=== PATIENT | female | born 1940 | race Caucasian/White ===

== ENCOUNTER 2016-05-31 12:18 | Emergency (ER) | payer MEDICARE, OTHER ==
[2016-01-26 14:28] VITALS: Ht 167.6 cm; Wt 59.0 kg
[~2016-05-31] VITALS: Ht 167.6 cm; Wt 59.0 kg
[~2016-05-31 12:18] MED LIST: AMBIEN; AMIT50TA3 PO; AMLO5TAB4 PO; BENA5TAB2 PO; CHOL2000 PO; CLON0.5T4 PO; CYCL-10 PO; DICY10CA59 PO; FURO80TA3 PO; HYDR10SY7 PO; LEVO100T PO; LEVO125T8 PO; LEVO88TA5 PO; LOT5 PO; NAPR250T PO; NEU100 PO; NEU300 PO; NORVASC; OXYC-133 PO; PANT20TA2 PO; RANI-362 PO; SOM350 PO; SOMA; WARF1TAB46; ZOLP10TA2 PO; ZOLP5TAB2 PO; neurontin
[2016-05-31 12:25] VITALS: BP 162/89; PULSE 76; RESP 17; TEMP 98.2; O2SAT 99
--- NOTE | 2016-05-31 12:25 | NUR ---
Placed in room 5 . Placed on drum drier operator, blood pressure machine and pulse oximeter. To gown for exam. Side rails up.
--- NOTE | 2016-05-31 12:25 | NUR ---
BIB BLS ambulance,c/o general weakness ,not eating for five days.pt said she is afraid to go home. pt is A&O X2,no resp distress,confused.no focal neuro deficit noted.equal healthcare financial analyst and pushes, no arms and legs drifts,speech is clear.skin is dry warm intact.
--- NOTE | 2016-05-31 13:34 | NUR ---
ER at bedside examining patient.
--- NOTE | 2016-05-31 13:48 | NUR ---
# 20 gauge angiocath placed to . Use of asceptic technique. Opsite placed over site. Blood return noted. Blood for lab drawn from site. Flushed with 10 cc of normal saline. No evidence of infiltration noted. Patient tolerated well.
--- NOTE | 2016-05-31 13:57 | NUR ---
nursing home social worker at bedside talking with the patient.
[2016-05-31 14:01] LABS: BASOPHILS # (AUTO) 0.1 K/uL (0.0-0.2); BASOPHILS % (AUTO) 0.9 % (0.0-2.0); EOSINOPHILS # (AUTO) 0.3 K/uL (0.0-0.4); EOSINOPHILS % (AUTO) 4.6 % (0.0-4.0); HEMOGLOBIN 10.6 g/dL (12.0-16.0); LYMPHOCYTES # (AUTO) 1.7 K/uL (1.0-5.5); LYMPHOCYTES % (AUTO) 29.7 % (20.5-51.5); MEAN CORPUSCULAR HEMOGLOBIN 27 pg (27-31); MEAN CORPUSCULAR HGB CONC 33 % (32-36); MEAN CORPUSCULAR VOLUME 83 fL (79.0-98.0); MONOCYTES # (AUTO) 0.4 K/uL (0.0-1.0); MONOCYTES % (AUTO) 6.8 % (1.7-9.3); NEUTROPHILS # (AUTO) 3.3 K/uL (1.8-7.7); PLATELET COUNT (AUTO) 297 K/uL (130-430); RED BLOOD CELL COUNT(AUTO) 3.86 MIL/uL (4.2-6.2); RED CELL DISTRIBUTION WIDTH 13.7 % (9.0-15.0); WHITE BLOOD COUNT (AUTO) 5.8 K/uL (4.8-10.8)
[2016-05-31 14:05] LABS: ANION GAP 8 (5-15); CALCIUM 8.7 mg/dL (8.4-11.0); CHLORIDE 102 mmol/L (98-107); CREATININE 1.32 mg/dL (0.55-1.30); GLUCOSE 88 mg/dL (70-99); POTASSIUM 3.4 mmol/L (3.5-5.1); SODIUM SERUM 140 mmol/L (136-145); UREA NITROGEN, BLOOD 25 mg/dL (8-21)
[2016-05-31 14:11] LABS: ALANINE AMINOTRANSFERASE 30 U/L (12-78); ALBUMIN 3.8 g/dL (3.4-4.8); ASPARTATE AMINOTRANSFERASE 26 U/L (10-37); LIPASE 140 U/L (73-393); TOTAL BILIRUBIN 0.3 mg/dL (0.0-1.0); TOTAL PROTEIN, SERUM 7.7 g/dL (6.4-8.3)
--- NOTE | 2016-05-31 14:26 | NUR ---
EKG completed,read by Dr Massey
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
--- NOTE | 2016-05-31 15:15 | NUR ---
Endorsed pt from CORTNEY Ross
--- NOTE | 2016-05-31 15:57 | NUR ---
Dr. Gonzalez, pt's ENT, at bedside examining patient
[2016-05-31 16:04] LABS: BILIRUBIN,URINE NEGATIVE (NEGATIVE); BLOOD, URINE NEGATIVE (NEGATIVE); CLARITY/URINE CLEAR (CLEAR); COLOR,URINE YELLOW (YELLOW); GLUCOSE,URINE NEGATIVE (NEGATIVE); KETONES,URINE NEGATIVE (NEGATIVE); LEUKOCYTE ESTERASE ,URINE NEGATIVE (NEGATIVE); NITRITE, URINE NEGATIVE (NEGATIVE); PROTEIN URINE NEGATIVE (NEGATIVE); UROBILINOGEN,URINE 0.2 (0.2-1.0)
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
--- NOTE | 2016-05-31 18:30 | NUR ---
PER PT SHE STATED THAT WE CONTACT HER SON JIMMIE AT [phone] SHE FEELS SAFE WITH HIM. CALLED HIS SON AND HE IS ON THE WAY WILL BE HERE IN 5 MINUTES
--- NOTE | 2016-05-31 18:48 | NUR ---
Patient is A&O x 3 speaking in full sentences ambulated and given written and verbal discharge instructions and verbalizes understanding. ER MD discussed with patient the results and treatment provided. Given copies of tests performed in ER. Patient in stable condition. ID arm band removed. IV catheter removed intact and dressing applied, no active bleeding. Rx of NONE given. Patient educated on pain management and to follow up with PMD. Pain Scale 0/10 Opportunity for questions provided and answered. assisted pt to sons car via wheelchair
[2016-05-31 18:51] VITALS: BP 136/69; PULSE 87; RESP 15; TEMP 98.2; O2SAT 98
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
== END 2016-05-31 18:50 | disposition home or self-care (01) ==
LOC: SED 12:18
DX: S09.90XA Unspecified injury of head, initial encounter (principal); K80.50 Calculus of bile duct without cholangitis or cholecystitis without obstruction; K59.00 Constipation, unspecified; R10.13 Epigastric pain; E03.9 Hypothyroidism, unspecified; Z88.5 Allergy status to narcotic agent; Z88.8 Allergy status to other drugs, medicaments and biological substances
CPT/HCPCS: 36415; 70450-TC; 80053; 81003; 83690-TC; 84484; 85025; 93005; 99285

== ENCOUNTER 2016-11-24 01:02 | Emergency (ER) | payer MEDICARE ==
[~2016-11-24] VITALS: Ht 175.3 cm; Wt 57.2 kg
[~2016-11-24 01:02] MED LIST changes: -AMBIEN; -AMIT50TA3 PO; -AMLO5TAB4 PO; -BENA5TAB2 PO; -CHOL2000 PO; -LEVO100T PO; -LEVO125T8 PO; -LEVO88TA5 PO; -LOT5 PO; -NAPR250T PO; -NEU100 PO; -NEU300 PO; -NORVASC; -SOM350 PO; -SOMA; -WARF1TAB46; -ZOLP10TA2 PO; -neurontin
[2016-11-24 01:05] VITALS: BP_SYST 135
[2016-11-24] MEDS: OXYCODONE/ACETAMINOPHEN 5-325 TABLET PO ONE (01:40)
[2016-11-24] MEDS: amLODIPine BESYLATE 5 MG TABLET PO ONE (02:05)
[2016-11-24 03:40] VITALS: BP_SYST 147
== END 2016-11-24 03:40 | disposition home or self-care (01) ==
LOC: SED 01:02
DX: G62.9 Polyneuropathy, unspecified (principal); G47.00 Insomnia, unspecified; E03.9 Hypothyroidism, unspecified; Z88.6 Allergy status to analgesic agent; Z88.5 Allergy status to narcotic agent; Z88.8 Allergy status to other drugs, medicaments and biological substances
CPT/HCPCS: 99283

== ENCOUNTER 2016-12-29 15:25 | Emergency (ER) | payer MEDICARE ==
[~2016-12-29] VITALS: Ht 180.3 cm; Wt 54.4 kg
--- NOTE | 2016-12-29 15:39 | NUR ---
Ambulatory to bed 3
--- NOTE | 2016-12-29 15:44 | NUR ---
Placed on cardiac nurse, blood pressure machine and pulse oximeter. To gown for exam. Side rails up.
[2016-12-29 15:46] VITALS: BP_SYST 167
--- NOTE | 2016-12-29 16:07 | NUR ---
ER at bedside examining patient.
--- NOTE | 2016-12-29 16:08 | NUR ---
# 20 gauge angiocath placed to lac . Use of asceptic technique. Opsite placed over site. Blood return noted. Blood for lab drawn from site. Flushed with 10 cc of normal saline. No evidence of infiltration noted. Patient tolerated well.
--- NOTE | 2016-12-29 16:16 | NUR ---
pt states" I have a cold,now cold comes to my chest,I couldn't breath, my fibromyogia flare up,my legs are hurting..." Pt is Awake alert oriented x4.denies chest pain,speak full sentences.no acute resp distress.
[2016-12-29 16:39] LABS: BASOPHILS # (AUTO) 0.1 K/uL (0.0-0.2); BASOPHILS % (AUTO) 0.9 % (0.0-2.0); EOSINOPHILS # (AUTO) 0.2 K/uL (0.0-0.4); EOSINOPHILS % (AUTO) 2.9 % (0.0-4.0); HEMATOCRIT 32.8 % (36-48); HEMOGLOBIN 11.1 g/dL (12.0-16.0); LYMPHOCYTES # (AUTO) 1.5 K/uL (1.0-5.5); LYMPHOCYTES % (AUTO) 26.3 % (20.5-51.5); MEAN CORPUSCULAR HEMOGLOBIN 29 pg (27-31); MEAN CORPUSCULAR HGB CONC 34 % (32-36); MEAN CORPUSCULAR VOLUME 85 fL (79.0-98.0); MONOCYTES # (AUTO) 0.6 K/uL (0.0-1.0); MONOCYTES % (AUTO) 10.5 % (1.7-9.3); NEUTROPHILS # (AUTO) 3.3 K/uL (1.8-7.7); NEUTROPHILS % (AUTO) 59.4 % (40.0-70.0); PLATELET COUNT (AUTO) 306 K/uL (130-430); RED BLOOD CELL COUNT(AUTO) 3.85 MIL/uL (4.2-6.2); RED CELL DISTRIBUTION WIDTH 17.8 % (9.0-15.0); WHITE BLOOD COUNT (AUTO) 5.7 K/uL (4.8-10.8)
[2016-12-29 16:43] LABS: ANION GAP 10 (5-15); CHLORIDE 103 mmol/L (98-107); CREATININE 1.01 mg/dL (0.55-1.30); GLUCOSE 80 mg/dL (70-99); SODIUM SERUM 137 mmol/L (136-145); UREA NITROGEN, BLOOD 22 mg/dL (8-21)
[2016-12-29 16:44] LABS: INR 0.9 (0.8-1.2); PROTHROMBIN TIME 9.8 SECS (9.5-12.5)
[2016-12-29 16:48] LABS: ALANINE AMINOTRANSFERASE 22 U/L (12-78); ALBUMIN 3.3 g/dL (3.4-4.8); ASPARTATE AMINOTRANSFERASE 22 U/L (10-37); TOTAL BILIRUBIN 0.3 mg/dL (0.0-1.0)
--- NOTE | 2016-12-29 18:02 | NUR ---
resting in bed,no acute distress.
[2016-12-29 18:31] LABS: BILIRUBIN,URINE NEGATIVE (NEGATIVE); BLOOD, URINE 2+ (NEGATIVE); CLARITY/URINE CLEAR (CLEAR); COLOR,URINE YELLOW (YELLOW); GLUCOSE,URINE NEGATIVE (NEGATIVE); KETONES,URINE NEGATIVE (NEGATIVE); LEUKOCYTE ESTERASE ,URINE NEGATIVE (NEGATIVE); NITRITE, URINE NEGATIVE (NEGATIVE); PH,URINE 6.5 (5.0-8.0); PROTEIN URINE NEGATIVE (NEGATIVE); UROBILINOGEN,URINE 0.2 (0.2-1.0)
[2016-12-29 18:34] LABS: BACTERIA,URINE FEW /HPF (None Seen); MUCUS,URINE None Seen /LPF (None Seen); RBC,URINE 0-3 /HPF (0-3); WBC,URINE 0-3 /HPF (0-3)
[2016-12-29 19:18] VITALS: BP_SYST 152
--- NOTE | 2016-12-29 19:20 | NUR ---
Patient does not wish to proceed with medical care recommended by Dr casarez. Patient given information related to possible complications, up to and including , which could occur as a result of leaving hospital at this time. Patient verbalizes understanding of risks involved leaving against medical advice. Patient has signed AMA form.
== END 2016-12-29 19:18 | disposition left against medical advice (07) ==
LOC: SED 15:25
DX: R07.89 Other chest pain (principal); M79.7 Fibromyalgia; E03.9 Hypothyroidism, unspecified; Z88.5 Allergy status to narcotic agent; Z88.6 Allergy status to analgesic agent; Z88.8 Allergy status to other drugs, medicaments and biological substances; Z79.899 Other long term (current) drug therapy
CPT/HCPCS: 36415; 71010; 80053; 81000-TC; 83880; 84484; 85025; 85610-TC; 93005; 99285

== ENCOUNTER 2017-01-12 18:52 | Emergency (ER) | payer MEDICARE ==
[2016-01-26 14:28] VITALS: Ht 180.3 cm; Wt 56.7 kg
[~2017-01-12] VITALS: Ht 180.3 cm; Wt 56.7 kg
[~2017-01-12 18:52] MED LIST changes: +AMBIEN; +AMIT50TA3 PO; +AMLO5TAB4 PO; +BENA5TAB2 PO; +CHOL2000 PO; +LEVO100T PO; +LEVO125T8 PO; +LEVO88TA5 PO; +LOT5 PO; +NAPR250T PO; +NEU100 PO; +NEU300 PO; +NORVASC; +SOM350 PO; +SOMA; +WARF1TAB46; +ZOLP10TA2 PO; +neurontin
[2017-01-12 19:01] VITALS: BP 169/99; PULSE 95; RESP 19; TEMP 98.9; O2SAT 96
[2017-01-12] MEDS ORDERED: ACETAMINOPHEN 500 MG TABLET PO ONE (20:30)
[2017-01-12 21:39] VITALS: BP 154/88; PULSE 87; RESP 19; TEMP 98.8; O2SAT 98
== END 2017-01-12 21:39 | disposition home or self-care (01) ==
LOC: SED 18:52
DX: S00.03XA Contusion of scalp, initial encounter (principal); S00.83XA Contusion of other part of head, initial encounter; E03.9 Hypothyroidism, unspecified; M79.7 Fibromyalgia; W18.30XA Fall on same level, unspecified, initial encounter; Y93.89 Activity, other specified; Y92.098 Other place in other non-institutional residence as the place of occurrence of the external cause; Y99.8 Other external cause status
CPT/HCPCS: 70450-TC; 70486-TC; 72125-TC; 99284

== ENCOUNTER 2017-05-03 19:30 | Emergency (ER) | payer MEDICARE ==
[~2017-05-03] VITALS: Ht 175.3 cm; Wt 68.0 kg
[~2017-05-03 19:30] MED LIST changes: -AMBIEN; -AMIT50TA3 PO; -AMLO5TAB4 PO; -BENA5TAB2 PO; -CHOL2000 PO; -LEVO100T PO; -LEVO125T8 PO; -LEVO88TA5 PO; -LOT5 PO; -NAPR250T PO; -NEU100 PO; -NEU300 PO; -NORVASC; -SOM350 PO; -SOMA; -WARF1TAB46; -ZOLP10TA2 PO; -neurontin
[2017-05-03 19:40] VITALS: BP_SYST 167
--- NOTE | 2017-05-03 19:40 | NUR ---
Placed in room 5 . Placed on youth nutritional monitor, blood pressure machine and pulse oximeter. To gown for exam. Side rails up. Report given to CORTNEY Doty.
--- NOTE | 2017-05-03 19:45 | NUR ---
Patient brought to ED accompanied by daughter with complaint of altered mentation. Daughter reports ALOC x 2 days. Presents AAOx2. Hx of UTI and Subdural hematoma. Slightly febrile at 99.3. Denies CP, SOB or N/V. NO deficits to extremity. Daughter reports innapropriate speech. Will continue to monitor.
--- NOTE | 2017-05-03 20:00 | NUR ---
ED Kiya at bedside for medical evaluation.
--- NOTE | 2017-05-03 20:13 | NUR ---
Patient transported off unit for CT via gurney. Accompanied by radiology staff.
--- NOTE | 2017-05-03 20:30 | NUR ---
Patient returned to unit.
[2017-05-03 20:58] LABS: ANION GAP 4 (5-15); CALCIUM 9.9 mg/dL (8.4-11.0); CHLORIDE 108 mmol/L (98-107); CREATININE 1.33 mg/dL (0.55-1.30); GLUCOSE 107 mg/dL (70-99); POTASSIUM 3.6 mmol/L (3.5-5.1); SODIUM SERUM 143 mmol/L (136-145); UREA NITROGEN, BLOOD 22 mg/dL (8-21)
[2017-05-03 21:02] LABS: BASOPHILS % (AUTO) 0.5 % (0.0-2.0); EOSINOPHILS # (AUTO) 0.2 K/uL (0.0-0.4); EOSINOPHILS % (AUTO) 2.4 % (0.0-4.0); HEMATOCRIT 38.3 % (36-48); HEMOGLOBIN 12.8 g/dL (12.0-16.0); LYMPHOCYTES # (AUTO) 1.6 K/uL (1.0-5.5); LYMPHOCYTES % (AUTO) 23.8 % (20.5-51.5); MEAN CORPUSCULAR HEMOGLOBIN 30 pg (27-31); MEAN CORPUSCULAR HGB CONC 34 % (32-36); MEAN CORPUSCULAR VOLUME 89 fL (79.0-98.0); MONOCYTES # (AUTO) 0.6 K/uL (0.0-1.0); MONOCYTES % (AUTO) 8.6 % (1.7-9.3); NEUTROPHILS # (AUTO) 4.5 K/uL (1.8-7.7); NEUTROPHILS % (AUTO) 64.7 % (40.0-70.0); PLATELET COUNT (AUTO) 316 K/uL (130-430); RED BLOOD CELL COUNT(AUTO) 4.32 MIL/uL (4.2-6.2); RED CELL DISTRIBUTION WIDTH 12.8 % (9.0-15.0); WHITE BLOOD COUNT (AUTO) 6.9 K/uL (4.8-10.8)
[2017-05-03 21:04] LABS: ALANINE AMINOTRANSFERASE 13 U/L (12-78); ALBUMIN 3.8 g/dL (3.4-4.8); ASPARTATE AMINOTRANSFERASE 16 U/L (10-37); TOTAL BILIRUBIN 0.3 mg/dL (0.0-1.0)
[2017-05-03 21:09] LABS: PROTHROMBIN TIME 10.1 SECS (9.5-12.5)
[2017-05-03 21:23] LABS: BARBITURATE, URINE NEGATIVE (NEG <=200); BENZODIAZEPINE, URINE POSITIVE (NEG <=150); CANNABINOID, URINE NEGATIVE (NEG <=50); COCAINE, URINE NEGATIVE (NEG <=150); METHAMPHETAMINES SCREEN,URINE NEGATIVE (NEG <=500); OPIATE, URINE NEGATIVE (NEG <=100); PHENCYCLIDINE SCREEN,URINE NEGATIVE (NEG <=25); UR TRICYCLIC ANTIDEPRESSANTS POSITIVE (NEG <=300); URINE AMPHETAMINE NEGATIVE (NEG <=500); URINE METHADONE NEGATIVE (NEG <=200); URINE OXYCODONE SCREEN NEGATIVE (NEG <=100); URINE PROPOXYPHENE SCREEN NEGATIVE (NEG <=300)
--- NOTE | 2017-05-03 21:46 | NUR ---
16 FR In and Out catheter with use of sterile technique. Immediate return of 100 ml lamar urine noted. Urine sample collected and sent to lab. Pt tolerated procedure well. Patient unable to toilet self.
[2017-05-03 22:15] LABS: BILIRUBIN,URINE NEGATIVE (NEGATIVE); BLOOD, URINE 1+ (NEGATIVE); CLARITY/URINE CLEAR (CLEAR); COLOR,URINE YELLOW (YELLOW); GLUCOSE,URINE NEGATIVE (NEGATIVE); KETONES,URINE TRACE (NEGATIVE); LEUKOCYTE ESTERASE ,URINE NEGATIVE (NEGATIVE); NITRITE, URINE NEGATIVE (NEGATIVE); PROTEIN URINE 1+ (NEGATIVE); UROBILINOGEN,URINE 0.2 (0.2-1.0)
[2017-05-03 22:23] LABS: BACTERIA,URINE MODERATE /HPF (None Seen); WBC,URINE 0-3 /HPF (0-3)
--- NOTE | 2017-05-03 22:30 | NUR ---
ED MD Kiya at bedside reassessing patient.
[2017-05-03 22:50] VITALS: BP_SYST 148
--- NOTE | 2017-05-03 22:50 | NUR ---
Patient given written and verbal discharge instructions and verbalizes understanding. ER MD discussed with patient the results and treatment provided. Patient in stable condition. ID arm band removed. Rx of Cipro given. Patient educated on pain management and to follow up with PMD. Pain Scale 0/10. Opportunity for questions provided and answered.
== END 2017-05-03 22:50 | disposition home or self-care (01) ==
LOC: SED 19:30
DX: F03.90 Unspecified dementia, unspecified severity, without behavioral disturbance, psychotic disturbance, mood disturbance, and anxiety (principal); N39.0 Urinary tract infection, site not specified; E86.0 Dehydration; Z88.5 Allergy status to narcotic agent; Z88.8 Allergy status to other drugs, medicaments and biological substances; Z79.899 Other long term (current) drug therapy; Z86.2 Personal history of diseases of the blood and blood-forming organs and certain disorders involving the immune mechanism
CPT/HCPCS: 36415; 70450; 80053; 80307; 81000; 85025; 85610; 87086; 93005; 99285; G0481

== ENCOUNTER 2019-02-23 12:08 | Inpatient (IN) | payer MEDICARE, OTHER ==
[~2019-02-23] VITALS: Ht 154.3 cm; Wt 63.5 kg
[~2019-02-23 12:08] MED LIST changes: +CLON0.5T12 PO; -CLON0.5T4 PO; +HYDR10SY11 PO; -HYDR10SY7 PO
[2019-02-23] MEDS ORDERED: ALBUTEROL SULFATE 0.083% 2.5 MG/3 ML VIAL.NEB INH ONE (12:15)
[2019-02-23] MEDS ORDERED: IPRATROPIUM/ALBUTEROL SULFATE 3 ML AMPUL.NEB (DUONEB) INH ONE (12:15)
[2019-02-23] MEDS ORDERED: MAGNESIUM SULFATE 50 ML IV ONE (12:15)
[2019-02-23] MEDS ORDERED: methylPREDNISolone SOD SUCC/PF 62.5 MG/ML VIAL IVP ONE (12:15)
[2019-02-23 12:18] VITALS: BP_SYST 141
[2019-02-23 12:52] LABS: BASOPHILS % (AUTO) 0.3 % (0.0-2.0); EOSINOPHILS # (AUTO) 0.1 K/uL (0.0-0.4); EOSINOPHILS % (AUTO) 0.6 % (0.0-4.0); HEMATOCRIT 32.5 % (36-48); HEMOGLOBIN 11.3 g/dL (12.0-16.0); LYMPHOCYTES # (AUTO) 1.7 K/uL (1.0-5.5); LYMPHOCYTES % (AUTO) 11.4 % (20.5-51.5); MEAN CORPUSCULAR HEMOGLOBIN 30 pg (27-31); MEAN CORPUSCULAR HGB CONC 35 % (32-36); MEAN CORPUSCULAR VOLUME 86 fL (79.0-98.0); MONOCYTES # (AUTO) 0.6 K/uL (0.0-1.0); MONOCYTES % (AUTO) 4.1 % (1.7-9.3); NEUTROPHILS # (AUTO) 12.4 K/uL (1.8-7.7); NEUTROPHILS % (AUTO) 83.6 % (40.0-70.0); RED BLOOD CELL COUNT(AUTO) 3.76 MIL/uL (4.2-6.2); RED CELL DISTRIBUTION WIDTH 14.6 % (9.0-15.0); WHITE BLOOD COUNT (AUTO) 14.8 K/uL (4.8-10.8)
[2019-02-23 13:04] LABS: ANION GAP 10 (5-15); CALCIUM 8.6 mg/dL (8.4-11.0); CHLORIDE 104 mmol/L (98-107); CREATININE 1.57 mg/dL (0.55-1.30); GLUCOSE 114 mg/dL (70-99); POTASSIUM 4.2 mmol/L (3.5-5.1); SODIUM SERUM 140 mmol/L (136-145); UREA NITROGEN, BLOOD 52 mg/dL (8-21)
[2019-02-23 13:07] LABS: PLATELET COUNT (AUTO) 803 K/uL (130-430)
[2019-02-23 13:09] LABS: ALANINE AMINOTRANSFERASE 64 U/L (12-78); ALBUMIN 2.7 g/dL (3.4-4.8); ASPARTATE AMINOTRANSFERASE 17 U/L (10-37); TOTAL BILIRUBIN 0.3 mg/dL (0.0-1.0)
[2019-02-23] MEDS ORDERED: PRO40 PO (14:35)
[2019-02-23] MEDS ORDERED: LEVO125T8 PO (14:35)
[2019-02-23] MEDS ORDERED: TRAM-350 PO (14:35)
[2019-02-23] MEDS ORDERED: PRED20TA PO (14:35)
[2019-02-23] MEDS ORDERED: ALBU8.5H8 INH (14:35)
[2019-02-23] MEDS ORDERED: AMLO5TAB4 PO (14:35)
[2019-02-23] MEDS ORDERED: GABA-531 PO (14:35)
[2019-02-23] MEDS ORDERED: VENL37.510 PO (14:35)
[2019-02-23] MEDS ORDERED: TRAZ-250 PO (14:35)
[2019-02-23] MEDS ORDERED: NORT10CA PO (14:35)
[2019-02-23] MEDS ORDERED: MIRT15TA7 PO (14:35)
[2019-02-23] MEDS ORDERED: LEVOFLOXACIN 500 MG/D5W 100 ML IV ONE (14:45)
[2019-02-23] MEDS ORDERED: cefTRIAXone 1 GM IVPB PREMIX 50 ML IV ONE (14:45)
[2019-02-23] MEDS ORDERED: LORazepam 2 MG/ML VIAL IVP ONE (15:00)
[2019-02-23] MEDS ORDERED: ONDANSETRON HCL 4 MG/2 ML VIAL IVP PRN (15:15)
[2019-02-23] MEDS ORDERED: ALBUTEROL SULFATE 0.083% 2.5 MG/3 ML VIAL.NEB INH PRN ×2 (15:15→15:18)
[2019-02-23] MEDS ORDERED: metroNIDAZOLE 500 mg/NS 100 ML IV ONE (16:00)
[2019-02-23 16:32] VITALS: BP_SYST 113
[2019-02-23 16:41] VITALS: BP_SYST 130
[2019-02-23] MEDS ORDERED: PANTOPRAZOLE SODIUM 40 MG/VIAL (PROTONIX) IVP ONE (17:00)
[2019-02-23 20:05] VITALS: BP_SYST 135
[2019-02-23] MEDS: ACETAMINOPHEN 325 MG TABLET PO PRN ×6 (21:56→23:14)
[2019-02-24 00:29] VITALS: BP_SYST 114
[2019-02-24 06:48] LABS: BASOPHILS % (AUTO) 0.2 % (0.0-2.0); HEMATOCRIT 29.7 % (36-48); HEMOGLOBIN 10.2 g/dL (12.0-16.0); LYMPHOCYTES # (AUTO) 1.4 K/uL (1.0-5.5); LYMPHOCYTES % (AUTO) 9.2 % (20.5-51.5); MEAN CORPUSCULAR HEMOGLOBIN 30 pg (27-31); MEAN CORPUSCULAR HGB CONC 34 % (32-36); MEAN CORPUSCULAR VOLUME 86 fL (79.0-98.0); MONOCYTES # (AUTO) 0.6 K/uL (0.0-1.0); MONOCYTES % (AUTO) 4.1 % (1.7-9.3); NEUTROPHILS # (AUTO) 13.3 K/uL (1.8-7.7); NEUTROPHILS % (AUTO) 86.5 % (40.0-70.0); PLATELET COUNT (AUTO) 746 K/uL (130-430); RED BLOOD CELL COUNT(AUTO) 3.44 MIL/uL (4.2-6.2); WHITE BLOOD COUNT (AUTO) 15.4 K/uL (4.8-10.8)
[2019-02-24 06:55] VITALS: BP_SYST 119
[2019-02-24 07:11] LABS: ALANINE AMINOTRANSFERASE 49 U/L (12-78); ALBUMIN 2.6 g/dL (3.4-4.8); ANION GAP 8 (5-15); ASPARTATE AMINOTRANSFERASE 14 U/L (10-37); CALCIUM 8.7 mg/dL (8.4-11.0); CHLORIDE 104 mmol/L (98-107); CREATININE 1.44 mg/dL (0.55-1.30); GLUCOSE 116 mg/dL (70-99); POTASSIUM 4.3 mmol/L (3.5-5.1); SODIUM SERUM 138 mmol/L (136-145); TOTAL BILIRUBIN 0.2 mg/dL (0.0-1.0); UREA NITROGEN, BLOOD 49 mg/dL (8-21)
[2019-02-24] MEDS: metroNIDAZOLE 500 mg/NS 100 ML IV SCH ×4 (08:46→23:50)
[2019-02-24] MEDS ORDERED: PANTOPRAZOLE SODIUM 40 MG/VIAL (PROTONIX) IVP SCH (09:00)
[2019-02-24 09:03] VITALS: BP_SYST 141
[2019-02-24] MEDS ORDERED: GABAPENTIN 300 MG CAPSULE PO PRN (11:15)
[2019-02-24] MEDS ORDERED: amLODIPine BESYLATE 5 MG TABLET PO ONE (11:30)
[2019-02-24] MEDS ORDERED: Effexor 37.5 MG TAB PO ONE (11:30)
[2019-02-24] MEDS ORDERED: NORTRIPTYLINE HCL 10 MG CAPSULE PO ONE (11:30)
[2019-02-24] MEDS ORDERED: LEVOTHYROXINE SODIUM 0.125 MG TABLET PO ONE (11:30)
[2019-02-24 12:38] VITALS: BP_SYST 126
[2019-02-24] MEDS: LevALBUTEROL HCL 1.25 MG/0.5 ML *CONC.* VIAL.NEB (XOPENEX CONC.) INH SCH ×2 (13:00→19:13)
[2019-02-24] MEDS: IPRATROPIUM BROM 0.5 MG/2.5 ML VIAL.NEB (ATROVENT) INH SCH ×2 (13:00→19:13)
[2019-02-24] MEDS: traZODone HCL 50 MG TABLET (DESYREL) PO SCH ×2 (14:51→22:16)
[2019-02-24] MEDS ORDERED: LEVOFLOXACIN 250 MG/D5W 50 ML IV SCH (15:00)
[2019-02-24 16:19] VITALS: BP_SYST 129
[2019-02-24] MEDS: NORTRIPTYLINE HCL 10 MG CAPSULE PO SCH (22:16)
[2019-02-25] MEDS: IPRATROPIUM BROM 0.5 MG/2.5 ML VIAL.NEB (ATROVENT) INH SCH ×3 (01:00→13:00)
[2019-02-25] MEDS: LevALBUTEROL HCL 1.25 MG/0.5 ML *CONC.* VIAL.NEB (XOPENEX CONC.) INH SCH ×3 (01:00→13:00)
[2019-02-25 02:36] VITALS: BP_SYST 137
[2019-02-25 06:37] LABS: BASOPHILS # (AUTO) 0.1 K/uL (0.0-0.2); BASOPHILS % (AUTO) 0.5 % (0.0-2.0); EOSINOPHILS # (AUTO) 0.1 K/uL (0.0-0.4); EOSINOPHILS % (AUTO) 0.9 % (0.0-4.0); HEMATOCRIT 28.3 % (36-48); HEMOGLOBIN 9.9 g/dL (12.0-16.0); LYMPHOCYTES # (AUTO) 2.7 K/uL (1.0-5.5); LYMPHOCYTES % (AUTO) 25.1 % (20.5-51.5); MEAN CORPUSCULAR HEMOGLOBIN 31 pg (27-31); MEAN CORPUSCULAR HGB CONC 35 % (32-36); MEAN CORPUSCULAR VOLUME 88 fL (79.0-98.0); MONOCYTES # (AUTO) 0.7 K/uL (0.0-1.0); MONOCYTES % (AUTO) 6.5 % (1.7-9.3); NEUTROPHILS # (AUTO) 7.3 K/uL (1.8-7.7); RED BLOOD CELL COUNT(AUTO) 3.21 MIL/uL (4.2-6.2); RED CELL DISTRIBUTION WIDTH 15.3 % (9.0-15.0)
[2019-02-25 06:51] LABS: ALANINE AMINOTRANSFERASE 46 U/L (12-78); ALBUMIN 2.5 g/dL (3.4-4.8); ANION GAP 9 (5-15); ASPARTATE AMINOTRANSFERASE 30 U/L (10-37); CALCIUM 8.4 mg/dL (8.4-11.0); CHLORIDE 105 mmol/L (98-107); CREATININE 1.39 mg/dL (0.55-1.30); GLUCOSE 94 mg/dL (70-99); POTASSIUM 4.2 mmol/L (3.5-5.1); SODIUM SERUM 138 mmol/L (136-145); TOTAL BILIRUBIN 0.3 mg/dL (0.0-1.0); UREA NITROGEN, BLOOD 40 mg/dL (8-21)
[2019-02-25 06:57] LABS: WHITE BLOOD COUNT (AUTO) 10.9 K/uL (4.8-10.8)
[2019-02-25] MEDS ORDERED: LEVOTHYROXINE SODIUM 0.125 MG TABLET PO SCH (07:00)
[2019-02-25 08:00] VITALS: BP_SYST 116; BP_SYST 134
[2019-02-25 08:34] LABS: PLATELET COUNT (AUTO) 647 K/uL (130-430)
[2019-02-25] MEDS: traZODone HCL 50 MG TABLET (DESYREL) PO SCH (09:00)
[2019-02-25] MEDS ORDERED: Effexor 37.5 MG TAB PO SCH (09:00)
[2019-02-25] MEDS ORDERED: amLODIPine BESYLATE 5 MG TABLET PO SCH (09:00)
[2019-02-25] MEDS ORDERED: PANTOPRAZOLE SODIUM 40 MG TAB PO SCH (09:00)
[2019-02-25] MEDS: metroNIDAZOLE 500 mg/NS 100 ML IV SCH (09:01)
[2019-02-25] MEDS ORDERED: LEVO500T89 PO (10:20)
[2019-02-25 11:14] VITALS: BP_SYST 127; BP_SYST 130
[2019-02-25 12:00] VITALS: BP_SYST 127
[2019-02-25] MEDS: NORTRIPTYLINE HCL 10 MG CAPSULE PO SCH (12:10)
[2019-02-25 14:16] VITALS: BP_SYST 130
== END 2019-02-25 15:00 | disposition home or self-care (01) | DRG 194 ==
LOC: SED 12:08 → STU 15:15
PROVIDERS: ADMIT Internal Medicine; ATTEND Internal Medicine
DX: J18.9 Pneumonia, unspecified organism (principal); L97.919 Non-pressure chronic ulcer of unspecified part of right lower leg with unspecified severity; J44.0 Chronic obstructive pulmonary disease with (acute) lower respiratory infection; L97.929 Non-pressure chronic ulcer of unspecified part of left lower leg with unspecified severity; E44.0 Moderate protein-calorie malnutrition; N18.3 Chronic kidney disease, stage 3 (moderate); D64.9 Anemia, unspecified; M79.7 Fibromyalgia; E03.9 Hypothyroidism, unspecified; Z96.652 Presence of left artificial knee joint; F17.210 Nicotine dependence, cigarettes, uncomplicated; E66.01 Morbid (severe) obesity due to excess calories; R74.0 Nonspecific elevation of levels of transaminase and lactic acid dehydrogenase [LDH]; R73.9 Hyperglycemia, unspecified; I25.10 Atherosclerotic heart disease of native coronary artery without angina pectoris; R26.9 Unspecified abnormalities of gait and mobility; I87.8 Other specified disorders of veins; I83.009 Varicose veins of unspecified lower extremity with ulcer of unspecified site; F10.10 Alcohol abuse, uncomplicated; I48.91 Unspecified atrial fibrillation; E87.5 Hyperkalemia; D47.3 Essential (hemorrhagic) thrombocythemia; Z88.5 Allergy status to narcotic agent; Z79.899 Other long term (current) drug therapy; Z91.19 Patient's noncompliance with other medical treatment and regimen; Z56.0 Unemployment, unspecified; Z68.26 Body mass index [BMI] 26.0-26.9, adult; I12.9 Hypertensive chronic kidney disease with stage 1 through stage 4 chronic kidney disease, or unspecified chronic kidney disease
CPT/HCPCS: 36415; 36600; 70450-TC; 71045; 71250-TC; 80053; 82803-TC; 83605; 85025; 87040-TC; 93005; 94640; 96365; 96367; 96368; 96375; 99285; C9113; G0378; J0696; J1956; J2060; J2930; J3475; J3490; J7612

== ENCOUNTER 2020-04-29 16:08 | Emergency (ER) | payer OTHER ==
[~2020-04-29] VITALS: Ht 170.2 cm; Wt 63.5 kg
[~2020-04-29 16:08] MED LIST changes: +ALBU8.5H8 INH; +AMLO5TAB4 PO; -CLON0.5T12 PO; -DICY10CA59 PO; -FURO80TA3 PO; +GABA-531 PO; -HYDR10SY11 PO; +LEVO125T8 PO; +LEVO500T89 PO; +MIRT15TA7 PO; +NORT10CA PO; -OXYC-133 PO; -PANT20TA2 PO; +PRED20TA PO; +PRO40 PO; -RANI-362 PO; +TRAM-350 PO; +TRAZ-250 PO; +VENL37.510 PO; -ZOLP5TAB2 PO
[2020-04-29 16:10] VITALS: BP_SYST 171
--- NOTE | 2020-04-29 16:10 | NUR ---
BROUGHT INTO OUTSIDE TRIAGE TENT NAD TRIAGED. AWAITING ER BED
--- NOTE | 2020-04-29 16:40 | NUR ---
DR OLIVA OUT TO TENT FOR EVALUATION
--- NOTE | 2020-04-29 17:20 | NUR ---
AWAITING RESULTS IN TENT.
--- NOTE | 2020-04-29 18:10 | NUR ---
VELCRO SPLINT APPLIED, PT TOLERATED IT WELL.
[2020-04-29] MEDS ORDERED: NAPR-1172 PO (18:28)
[2020-04-29] MEDS ORDERED: ACETAMINOPHEN 500 MG TABLET PO ONE (18:30)
--- NOTE | 2020-04-29 18:56 | NUR ---
Patient given written and verbal discharge instructions and verbalizes understanding. ER MD discussed with patient the results and treatment provided. Patient in stable condition. ID arm band removed. Rx of NAPROXEN given. Patient educated on pain management and to follow up with PMD. Pain Scale 0/10. Opportunity for questions provided and answered. Medication side effect fact sheet provided.
== END 2020-04-29 18:56 | disposition home or self-care (01) ==
LOC: SED 16:08
DX: S52.592A Other fractures of lower end of left radius, initial encounter for closed fracture (principal); S00.03XA Contusion of scalp, initial encounter; I10 Essential (primary) hypertension; E03.9 Hypothyroidism, unspecified; J44.9 Chronic obstructive pulmonary disease, unspecified; Z79.899 Other long term (current) drug therapy; Z88.6 Allergy status to analgesic agent; W18.39XA Other fall on same level, initial encounter; Y93.89 Activity, other specified; Y92.89 Other specified places as the place of occurrence of the external cause; Y99.8 Other external cause status
CPT/HCPCS: 70450-TC; 76376; 99284

== ENCOUNTER 2020-10-04 16:26 | Emergency (ER) | payer OTHER ==
[~2020-10-04] VITALS: Ht 177.8 cm; Wt 70.3 kg
[~2020-10-04 16:26] MED LIST changes: +EFF37 PO; +NAPR-1172 PO; -VENL37.510 PO
--- NOTE | 2020-10-04 16:28 | NUR ---
Patient to ER bed 04 to gown for evaluation. Side rails up.
--- NOTE | 2020-10-04 16:30 | NUR ---
Pt walked in to ER with c/o left knee pain, reports mechanical trip and fall 2 days ago while walking up her porch. Knee pain /, pt reports hitting her head also, no KO, no BARNETT at this time. V/S stable, no acute distress noted.
[2020-10-04 16:33] VITALS: BP_SYST 150
--- NOTE | 2020-10-04 16:38 | NUR ---
ER Dr. Phelan at bedside examining patient.
--- NOTE | 2020-10-04 16:59 | NUR ---
Radiology at bedside for knee x-ray.
[2020-10-04] MEDS ORDERED: KETOROLAC TROMETHAMINE 60 MG/2 ML VIAL IM ONE (17:00)
--- NOTE | 2020-10-04 17:05 | NUR ---
Patient transported to radiology via wheelchair, accompanied by staff.
[2020-10-04] MEDS ORDERED: ACET-2634 PO (18:41)
--- NOTE | 2020-10-04 18:50 | NUR ---
Patient given written and verbal discharge instructions and verbalizes understanding. ER MD discussed with patient the results and treatment provided. Patient in stable condition. ID arm band removed. Rx of Tylenol given. Patient educated on pain management and to follow up with PMD. Pain Scale 0. Opportunity for questions provided and answered. Medication side effect fact sheet provided.
[2020-10-04 18:53] VITALS: BP_SYST 150
== END 2020-10-04 18:53 | disposition home or self-care (01) ==
LOC: SED 16:26
DX: S83.92XA Sprain of unspecified site of left knee, initial encounter (principal); S09.90XA Unspecified injury of head, initial encounter; I10 Essential (primary) hypertension; J44.9 Chronic obstructive pulmonary disease, unspecified; Z88.5 Allergy status to narcotic agent; Z88.6 Allergy status to analgesic agent; Z79.899 Other long term (current) drug therapy; W01.10XA Fall on same level from slipping, tripping and stumbling with subsequent striking against unspecified object, initial encounter; Y93.89 Activity, other specified; Y92.89 Other specified places as the place of occurrence of the external cause; Y99.8 Other external cause status
CPT/HCPCS: 70450; 73564; 76376; 96372; 99284; J1885

== ENCOUNTER 2020-11-23 14:41 | Inpatient (IN) | payer OTHER, SELFPAY ==
[~2020-11-23] VITALS: Ht 177.8 cm; Wt 68.9 kg
[~2020-11-23 14:41] MED LIST changes: +ACET-2634 PO
[2020-11-23 14:55] VITALS: BP_SYST 125
[2020-11-23] MEDS ORDERED: HYDROcodone/ACETAMIN 5-325 MG TAB (NORCO/ VICODIN) PO ONE (15:45)
[2020-11-23 16:01] LABS: PROTHROMBIN TIME 10.7 SECS (9.5-12.5)
[2020-11-23 16:07] LABS: EOSINOPHILS % (AUTO) 0.2 % (0.0-4.0)
[2020-11-23 16:14] LABS: ANION GAP 13 (5-15); CALCIUM 8.9 mg/dL (8.4-11.0); CHLORIDE 101 mmol/L (98-107); CREATININE 1.81 mg/dL (0.55-1.30); GLUCOSE 130 mg/dL (70-99); POTASSIUM 3.4 mmol/L (3.5-5.1); SODIUM SERUM 141 mmol/L (136-145); UREA NITROGEN, BLOOD 23 mg/dL (8-21)
[2020-11-23 16:20] LABS: ALANINE AMINOTRANSFERASE 79 U/L (12-78); ALBUMIN 2.2 g/dL (3.4-4.8); ASPARTATE AMINOTRANSFERASE 118 U/L (10-37); TOTAL BILIRUBIN 0.7 mg/dL (0.0-1.0)
[2020-11-23 16:26] LABS: BASOPHILS % (AUTO) 0.2 % (0.0-2.0); HEMATOCRIT 36.5 % (36-48); HEMOGLOBIN 12.4 g/dL (12.0-16.0); LYMPHOCYTES # (AUTO) 1.5 K/uL (1.0-5.5); LYMPHOCYTES % (AUTO) 7.2 % (20.5-51.5); MEAN CORPUSCULAR HEMOGLOBIN 30 pg (27-31); MEAN CORPUSCULAR HGB CONC 34 % (32-36); MEAN CORPUSCULAR VOLUME 89 fL (79.0-98.0); MONOCYTES # (AUTO) 1.5 K/uL (0.0-1.0); MONOCYTES % (AUTO) 7.1 % (1.7-9.3); NEUTROPHILS # (AUTO) 18.1 K/uL (1.8-7.7); NEUTROPHILS % (AUTO) 85.3 % (40.0-70.0); RED BLOOD CELL COUNT(AUTO) 4.09 MIL/uL (4.2-6.2); RED CELL DISTRIBUTION WIDTH 13.8 % (9.0-15.0); WHITE BLOOD COUNT (AUTO) 21.3 K/uL (4.8-10.8)
[2020-11-23 16:31] LABS: PLATELET COUNT (AUTO) 765 K/uL (130-430)
[2020-11-23 17:22] LABS: BILIRUBIN,URINE 2+ (NEGATIVE); BLOOD, URINE 1+ (NEGATIVE); CLARITY/URINE CLOUDY (CLEAR); COLOR,URINE YELLOW (YELLOW); GLUCOSE,URINE NEGATIVE (NEGATIVE); KETONES,URINE TRACE (NEGATIVE); LEUKOCYTE ESTERASE ,URINE NEGATIVE (NEGATIVE); NITRITE, URINE NEGATIVE (NEGATIVE); PH,URINE 5.5 (5.0-8.0); PROTEIN URINE 1+ (NEGATIVE)
[2020-11-23 17:45] LABS: BACTERIA,URINE MODERATE /HPF (None Seen); HYALINE CASTS, URINE 0-10 /LPF (None Seen); RBC,URINE 0-3 /HPF (0-3); WBC,URINE 0-3 /HPF (0-3)
[2020-11-23 17:46] LABS: MUCUS,URINE 1+ /LPF (None Seen)
[2020-11-23] MEDS ORDERED: POTASSIUM CHLORIDE 10 MEQ TAB.PRT.SR PO ONE (18:00)
[2020-11-23] MEDS ORDERED: AZITHROMYCIN 500 MG in NS 250 ML IV SCH (18:00)
[2020-11-23] MEDS ORDERED: ACETAMINOPHEN 325 MG TABLET PO PRN (18:00)
[2020-11-23] MEDS ORDERED: ALBUTEROL SULFATE 0.083% 2.5 MG/3 ML VIAL.NEB INH PRN (18:00)
[2020-11-23] MEDS ORDERED: AZITHROMYCIN 500 MG/VIAL (ZITHROMAX) IV ONE (18:07)
[2020-11-23] MEDS ORDERED: traZODone HCL 50 MG TABLET (DESYREL) PO PRN (18:15)
[2020-11-23] MEDS ORDERED: CYCLOBENZAPRINE HCL 10 MG TABLET (FLEXERIL) PO PRN (18:15)
[2020-11-23] MEDS ORDERED: GABAPENTIN 300 MG CAPSULE PO PRN (18:15)
[2020-11-23] MEDS ORDERED: MIRTAZAPINE 15 MG TABLET PO PRN (18:15)
[2020-11-23] MEDS: NACL 0.9% 1,000 ML IV SCH (18:25)
[2020-11-23] MEDS: traMADol HCL HCL 50 MG TABLET (ULTRAM) PO PRN (19:10)
[2020-11-23] MEDS ORDERED: cefTRIAXone 2 GM VIAL ONE (20:19)
[2020-11-24 04:06] VITALS: BP_SYST 122
[2020-11-24 07:04] LABS: ALBUMIN 1.9 g/dL (3.4-4.8); ANION GAP 10 (5-15); BASOPHILS # (AUTO) 0.1 K/uL (0.0-0.2); BASOPHILS % (AUTO) 0.6 % (0.0-2.0); CALCIUM 8.6 mg/dL (8.4-11.0); CHLORIDE 103 mmol/L (98-107); CREATININE 1.51 mg/dL (0.55-1.30); EOSINOPHILS # (AUTO) 0.6 K/uL (0.0-0.4); EOSINOPHILS % (AUTO) 3.2 % (0.0-4.0); GLUCOSE 103 mg/dL (70-99); HEMATOCRIT 33.5 % (36-48); HEMOGLOBIN 11.1 g/dL (12.0-16.0); LYMPHOCYTES # (AUTO) 1.5 K/uL (1.0-5.5); LYMPHOCYTES % (AUTO) 8.7 % (20.5-51.5); MEAN CORPUSCULAR HEMOGLOBIN 30 pg (27-31); MEAN CORPUSCULAR HGB CONC 33 % (32-36); MEAN CORPUSCULAR VOLUME 89 fL (79.0-98.0); MONOCYTES % (AUTO) 5.9 % (1.7-9.3); NEUTROPHILS # (AUTO) 13.8 K/uL (1.8-7.7); NEUTROPHILS % (AUTO) 81.6 % (40.0-70.0); PLATELET COUNT (AUTO) 665 K/uL (130-430); POTASSIUM 3.2 mmol/L (3.5-5.1); RED BLOOD CELL COUNT(AUTO) 3.78 MIL/uL (4.2-6.2); RED CELL DISTRIBUTION WIDTH 13.7 % (9.0-15.0); SODIUM SERUM 140 mmol/L (136-145); UREA NITROGEN, BLOOD 29 mg/dL (8-21); WHITE BLOOD COUNT (AUTO) 16.9 K/uL (4.8-10.8)
[2020-11-24 08:01] LABS: ALANINE AMINOTRANSFERASE 123 U/L (12-78); ASPARTATE AMINOTRANSFERASE 236 U/L (10-37); TOTAL BILIRUBIN 0.3 mg/dL (0.0-1.0)
[2020-11-24] MEDS: amLODIPine BESYLATE 5 MG TABLET PO SCH (09:42)
[2020-11-24] MEDS: Effexor 37.5 MG TAB PO SCH (09:43)
[2020-11-24] MEDS: NORTRIPTYLINE HCL 10 MG CAPSULE PO SCH ×2 (09:43→21:44)
[2020-11-24] MEDS: predniSONE 20 MG TABLET PO SCH (09:43)
[2020-11-24] MEDS: LEVOTHYROXINE SODIUM 0.125 MG TABLET PO SCH (09:43)
[2020-11-24] MEDS: PANTOPRAZOLE SODIUM 40 MG TAB PO SCH (09:43)
[2020-11-24] MEDS: NACL 0.9% 1,000 ML IV SCH ×2 (13:14→20:40)
[2020-11-24 16:00] VITALS: BP_SYST 122
[2020-11-24 16:18] VITALS: BP_SYST 122; BP_SYST 137
[2020-11-24] MEDS: AZITHROMYCIN 500 MG in NS 250 ML IV SCH (18:24)
[2020-11-24 20:00] VITALS: BP_SYST 136
[2020-11-24] MEDS ORDERED: ZOLP10TA2 PO (21:32)
[2020-11-24] MEDS ORDERED: ZOLPIDEM TARTRATE 5 MG TABLET PO ONE (21:45)
[2020-11-25] VITALS: BP_SYST 149
[2020-11-25 07:50] VITALS: BP_SYST 135
[2020-11-25] MEDS: Effexor 37.5 MG TAB PO SCH (10:14)
[2020-11-25] MEDS: predniSONE 20 MG TABLET PO SCH (10:14)
[2020-11-25] MEDS: PANTOPRAZOLE SODIUM 40 MG TAB PO SCH (10:14)
[2020-11-25] MEDS: LEVOTHYROXINE SODIUM 0.125 MG TABLET PO SCH (10:14)
[2020-11-25] MEDS: amLODIPine BESYLATE 5 MG TABLET PO SCH (10:14)
[2020-11-25] MEDS: NORTRIPTYLINE HCL 10 MG CAPSULE PO SCH ×2 (10:28→21:00)
[2020-11-25] MEDS: NACL 0.9% 1,000 ML IV SCH ×2 (10:40→23:44)
[2020-11-25 12:00] VITALS: BP_SYST 135
[2020-11-25 16:02] VITALS: BP_SYST 130
[2020-11-25] MEDS: AZITHROMYCIN 500 MG in NS 250 ML IV SCH (19:24)
[2020-11-25 19:45] VITALS: BP_SYST 134
[2020-11-25 21:55] VITALS: BP_SYST 134
[2020-11-26 00:01] VITALS: BP_SYST 145
[2020-11-26 04:30] VITALS: BP_SYST 138
[2020-11-26 08:17] VITALS: BP_SYST 136
[2020-11-26] MEDS: PANTOPRAZOLE SODIUM 40 MG TAB PO SCH (09:15)
[2020-11-26] MEDS: Effexor 37.5 MG TAB PO SCH (09:15)
[2020-11-26] MEDS: LEVOTHYROXINE SODIUM 0.125 MG TABLET PO SCH (09:15)
[2020-11-26] MEDS: predniSONE 20 MG TABLET PO SCH (09:15)
[2020-11-26] MEDS: NORTRIPTYLINE HCL 10 MG CAPSULE PO SCH ×2 (09:15→21:08)
[2020-11-26] MEDS: amLODIPine BESYLATE 5 MG TABLET PO SCH (09:16)
[2020-11-26] MEDS: PIPERACILLIN/TAZO 2.25G/DEX-IS 50 ML IV SCH ×2 (12:17→18:06)
[2020-11-26] MEDS: NACL 0.9% 1,000 ML IV SCH (12:17)
[2020-11-26 12:35] VITALS: BP_SYST 131
[2020-11-26 14:09] LABS: BASOPHILS % (AUTO) 0.2 % (0.0-2.0); EOSINOPHILS % (AUTO) 0.3 % (0.0-4.0); HEMATOCRIT 34.4 % (36-48); HEMOGLOBIN 11.7 g/dL (12.0-16.0); LYMPHOCYTES # (AUTO) 1.7 K/uL (1.0-5.5); LYMPHOCYTES % (AUTO) 12.9 % (20.5-51.5); MEAN CORPUSCULAR HEMOGLOBIN 30 pg (27-31); MEAN CORPUSCULAR HGB CONC 34 % (32-36); MEAN CORPUSCULAR VOLUME 87 fL (79.0-98.0); MONOCYTES # (AUTO) 0.8 K/uL (0.0-1.0); NEUTROPHILS # (AUTO) 10.9 K/uL (1.8-7.7); NEUTROPHILS % (AUTO) 80.6 % (40.0-70.0); PLATELET COUNT (AUTO) 730 K/uL (130-430); RED BLOOD CELL COUNT(AUTO) 3.96 MIL/uL (4.2-6.2); RED CELL DISTRIBUTION WIDTH 13.8 % (9.0-15.0); WHITE BLOOD COUNT (AUTO) 13.5 K/uL (4.8-10.8)
[2020-11-26 14:27] LABS: ANION GAP 8 (5-15); CALCIUM 8.2 mg/dL (8.4-11.0); CHLORIDE 103 mmol/L (98-107); CREATININE 1.17 mg/dL (0.55-1.30); GLUCOSE 128 mg/dL (70-99); SODIUM SERUM 138 mmol/L (136-145); UREA NITROGEN, BLOOD 17 mg/dL (8-21)
[2020-11-26 14:32] LABS: ALANINE AMINOTRANSFERASE 86 U/L (12-78); ALBUMIN 2.1 g/dL (3.4-4.8); ASPARTATE AMINOTRANSFERASE 53 U/L (10-37); TOTAL BILIRUBIN 0.3 mg/dL (0.0-1.0)
[2020-11-26 14:37] LABS: POTASSIUM 2.9 mmol/L (3.5-5.1)
[2020-11-26] MEDS ORDERED: POTASSIUM CHLORIDE 20 MEQ TAB.PRT.SR PO ONE (15:45)
[2020-11-26 16:52] VITALS: BP_SYST 126
[2020-11-26] MEDS: AZITHROMYCIN 500 MG in NS 250 ML IV SCH (18:43)
[2020-11-26 20:00] VITALS: BP_SYST 122
[2020-11-26] MEDS: traMADol HCL HCL 50 MG TABLET (ULTRAM) PO PRN (21:14)
[2020-11-27] VITALS: BP_SYST 137
[2020-11-27] MEDS: PIPERACILLIN/TAZO 2.25G/DEX-IS 50 ML IV SCH ×3 (00:34→11:26)
[2020-11-27] MEDS: NACL 0.9% 1,000 ML IV SCH ×2 (02:00→11:27)
[2020-11-27 08:00] VITALS: BP_SYST 151
[2020-11-27 08:39] VITALS: BP_SYST 137
[2020-11-27] MEDS: PANTOPRAZOLE SODIUM 40 MG TAB PO SCH (09:11)
[2020-11-27] MEDS: NORTRIPTYLINE HCL 10 MG CAPSULE PO SCH (09:12)
[2020-11-27] MEDS: predniSONE 20 MG TABLET PO SCH (09:12)
[2020-11-27] MEDS: amLODIPine BESYLATE 5 MG TABLET PO SCH (09:12)
[2020-11-27] MEDS: Effexor 37.5 MG TAB PO SCH (09:12)
[2020-11-27] MEDS: LEVOTHYROXINE SODIUM 0.125 MG TABLET PO SCH (09:12)
[2020-11-27] MEDS ORDERED: LEVO500T89 PO (12:11)
[2020-11-27 12:18] VITALS: BP_SYST 129
[2020-11-27 13:18] VITALS: BP_SYST 145
[2020-11-27 16:17] VITALS: BP_SYST 132
== END 2020-11-27 17:16 | disposition home or self-care (01) | DRG 871 ==
LOC: SED 14:41 → STU 17:46 → SMU 11-24 13:38
PROVIDERS: ADMIT Internal Medicine Hospice and Palliative Medicine; ATTEND Internal Medicine Hospice and Palliative Medicine
DX: A41.9 Sepsis, unspecified organism (principal); J18.9 Pneumonia, unspecified organism; N39.0 Urinary tract infection, site not specified; N17.9 Acute kidney failure, unspecified; J44.0 Chronic obstructive pulmonary disease with (acute) lower respiratory infection; E46 Unspecified protein-calorie malnutrition; D64.9 Anemia, unspecified; E03.9 Hypothyroidism, unspecified; E83.52 Hypercalcemia; I10 Essential (primary) hypertension; Z20.822 Contact with and (suspected) exposure to COVID-19; M79.7 Fibromyalgia; K80.20 Calculus of gallbladder without cholecystitis without obstruction; K72.90 Hepatic failure, unspecified without coma; D47.3 Essential (hemorrhagic) thrombocythemia; R73.9 Hyperglycemia, unspecified; F32.9 Major depressive disorder, single episode, unspecified; G89.29 Other chronic pain; Z87.11 Personal history of peptic ulcer disease; Z88.5 Allergy status to narcotic agent; Z88.8 Allergy status to other drugs, medicaments and biological substances; Z68.21 Body mass index [BMI] 21.0-21.9, adult; Z79.899 Other long term (current) drug therapy
CPT/HCPCS: 36415; 71045; 76700-TC; 80053; 81000; 83605; 84484; 85025; 85610-TC; 85651-TC; 85730-TC; 86738; 87040-TC; 87086; 87449; 93005; 96365; 99285; G0378; J0456; J0696; J2543; J7050; J7060; J7512

== ENCOUNTER 2021-04-10 20:15 | Inpatient (IN) | payer OTHER, SELFPAY ==
[~2021-04-10] VITALS: Ht 177.8 cm; Wt 70.8 kg
[2021-04-10 20:15] VITALS: BP_SYST 143
[~2021-04-10 20:15] MED LIST changes: -ACET-2634 PO; -ALBU8.5H8 INH; -CYCL-10 PO; +CYCL10TA24 PO; -LEVO500T89 PO; +LEVO500T90 PO; +MIRT-91 PO; -MIRT15TA7 PO; +ZOLP10TA2 PO
--- NOTE | 2021-04-10 20:50 | NUR ---
# 20 gauge angiocath placed to RAC. Use of asceptic technique. Opsite placed over site. Blood return noted. Blood for lab drawn from site. Flushed with 10 cc of normal saline. No evidence of infiltration noted. Patient tolerated well.
--- NOTE | 2021-04-10 20:50 | NUR ---
ER at bedside examining patient.
--- NOTE | 2021-04-10 20:51 | NUR ---
Note nathaniel in EDM - 04/10/21 at 2131 by JOHAN PT BIB MOTHER FOR STROKE LIKE SYMPTOMS STARTING 04/08/21 AT 2300. PT STATES IT STARTED AT NIGHT AND HAS GRADUALLY GOTTEN WORSE. PT HAS SLURRED SPEECH AND RIGHT SIDED DEFICITS. A&OX4. 0/10 PAIN
[2021-04-10 21:08] LABS: BASOPHILS # (AUTO) 0.1 K/uL (0.0-0.2); BASOPHILS % (AUTO) 0.9 % (0.0-2.0); EOSINOPHILS # (AUTO) 0.3 K/uL (0.0-0.4); EOSINOPHILS % (AUTO) 3.1 % (0.0-4.0); HEMATOCRIT 40.1 % (36-48); LYMPHOCYTES # (AUTO) 1.9 K/uL (1.0-5.5); LYMPHOCYTES % (AUTO) 21.2 % (20.5-51.5); MEAN CORPUSCULAR HEMOGLOBIN 29 pg (27-31); MEAN CORPUSCULAR HGB CONC 35 % (32-36); MEAN CORPUSCULAR VOLUME 84 fL (79.0-98.0); MONOCYTES # (AUTO) 0.8 K/uL (0.0-1.0); MONOCYTES % (AUTO) 8.8 % (1.7-9.3); PLATELET COUNT (AUTO) 366 K/uL (130-430); RED BLOOD CELL COUNT(AUTO) 4.78 MIL/uL (4.2-6.2); RED CELL DISTRIBUTION WIDTH 13.3 % (9.0-15.0); WHITE BLOOD COUNT (AUTO) 9.1 K/uL (4.8-10.8)
[2021-04-10 21:15] LABS: ANION GAP 9 (5-15); CALCIUM 8.6 mg/dL (8.4-11.0); CHLORIDE 99 mmol/L (98-107); CREATININE 1.34 mg/dL (0.55-1.30); GLUCOSE 113 mg/dL (70-99); POTASSIUM 3.7 mmol/L (3.5-5.1); SODIUM SERUM 136 mmol/L (136-145); UREA NITROGEN, BLOOD 24 mg/dL (8-21)
[2021-04-10 21:17] LABS: INR 0.9 (0.8-1.2); PROTHROMBIN TIME 9.3 SECS (9.5-12.5)
[2021-04-10 21:21] LABS: ALANINE AMINOTRANSFERASE 18 U/L (12-78); ALBUMIN 3.7 g/dL (3.4-4.8); ASPARTATE AMINOTRANSFERASE 16 U/L (10-37); TOTAL BILIRUBIN 0.3 mg/dL (0.0-1.0)
--- NOTE | 2021-04-10 23:35 | NUR ---
APatient will be admitted to care of DR. PEREZ. Admitted to TELE unit. Will go to room TBD. Belongings list completed. Complete and up to date summary report printed. SBAR report to be given at bedside with opportunity for questions.
[2021-04-10] MEDS ORDERED: ALBUTEROL SULFATE 0.083% 2.5 MG/3 ML VIAL.NEB INH PRN (23:45)
[2021-04-10] MEDS ORDERED: ACETAMINOPHEN 325 MG TABLET PO PRN (23:45)
--- NOTE | 2021-04-11 01:00 | NUR ---
PT GIVEN ROOM IN TELEMETRY 102B. AWAITING CT BY VILMA BEFORE BEING TAKEN TO ROOM.
[2021-04-11] MEDS ORDERED: IOHEXOL 350 mgI/mL, 150 ML INFUS..BTL IV ONE (01:30)
--- NOTE | 2021-04-11 01:50 | NUR ---
Transfer to 120b via ACLS protocol. Licensed nurse present. IV present no signs or symptoms of infiltration.
[2021-04-11 01:55] VITALS: BP_SYST 157
[2021-04-11 04:52] VITALS: BP_SYST 162
[2021-04-11 08:00] VITALS: BP_SYST 154
[2021-04-11 08:02] LABS: BASOPHILS # (AUTO) 0.1 K/uL (0.0-0.2); BASOPHILS % (AUTO) 0.7 % (0.0-2.0); EOSINOPHILS # (AUTO) 0.3 K/uL (0.0-0.4); HEMATOCRIT 40.3 % (36-48); HEMOGLOBIN 14.1 g/dL (12.0-16.0); LYMPHOCYTES # (AUTO) 1.8 K/uL (1.0-5.5); LYMPHOCYTES % (AUTO) 21.5 % (20.5-51.5); MEAN CORPUSCULAR HEMOGLOBIN 30 pg (27-31); MEAN CORPUSCULAR HGB CONC 35 % (32-36); MEAN CORPUSCULAR VOLUME 84 fL (79.0-98.0); MONOCYTES # (AUTO) 0.9 K/uL (0.0-1.0); MONOCYTES % (AUTO) 10.5 % (1.7-9.3); NEUTROPHILS # (AUTO) 5.3 K/uL (1.8-7.7); NEUTROPHILS % (AUTO) 63.3 % (40.0-70.0); PLATELET COUNT (AUTO) 345 K/uL (130-430); RED BLOOD CELL COUNT(AUTO) 4.79 MIL/uL (4.2-6.2); RED CELL DISTRIBUTION WIDTH 13.3 % (9.0-15.0); WHITE BLOOD COUNT (AUTO) 8.4 K/uL (4.8-10.8)
[2021-04-11 08:45] LABS: ALANINE AMINOTRANSFERASE 14 U/L (12-78); ALBUMIN 3.5 g/dL (3.4-4.8); ANION GAP 5 (5-15); ASPARTATE AMINOTRANSFERASE 12 U/L (10-37); CALCIUM 8.8 mg/dL (8.4-11.0); CHLORIDE 100 mmol/L (98-107); CREATININE 1.05 mg/dL (0.55-1.30); GLUCOSE 100 mg/dL (70-99); POTASSIUM 3.6 mmol/L (3.5-5.1); SODIUM SERUM 136 mmol/L (136-145); TOTAL BILIRUBIN 0.4 mg/dL (0.0-1.0); UREA NITROGEN, BLOOD 18 mg/dL (8-21)
--- NOTE | 2021-04-11 10:34 | NUR ---
PT'S DAUGHTER CALLED AND GIVEN UPDATE ON PT'S STATUS.
--- NOTE | 2021-04-11 11:19 | NUR ---
PAGED DR OBANDO TO GET ORDER FOR ATIVAN OR ANY RELAXING MED FOR MRI.. GOT ORDER FOR ATIVAN.
[2021-04-11] MEDS ORDERED: LORazepam 2 MG/ML VIAL IVP ONE (11:30)
--- NOTE | 2021-04-11 11:48 | NUR ---
left message with mri that pt has order for ativan now.
--- NOTE | 2021-04-11 12:04 | NUR ---
pt given ativan as pre-med for mri.
[2021-04-11] MEDS ORDERED: traZODone HCL 50 MG TABLET (DESYREL) PO SCH (12:45)
[2021-04-11] MEDS ORDERED: GABAPENTIN 300 MG CAPSULE PO PRN (12:45)
[2021-04-11] MEDS ORDERED: ONDANSETRON HCL 4 MG/2 ML VIAL IVP PRN (12:45)
[2021-04-11] MEDS ORDERED: LORazepam 2 MG/ML VIAL IVP PRN (12:45)
--- NOTE | 2021-04-11 12:46 | NUR ---
DR Manning was here. Asked md to pls do the med rec.
--- NOTE | 2021-04-11 13:26 | NUR ---
CONSULTATION PAGED/CALLED Reason for Consultation: [] POSS CVA Person Who was Notified: [] TEXTED DR VALDEZ Consulting Physician: [] DR Lanny VALDEZ Lens Grinding Machine Operator Specialty: [] NEURO Ordering Physician: [] DR OBANDO/DR PEREZ
--- NOTE | 2021-04-11 14:03 | NUR ---
WRONG PT Addendum: 04/11/21 at 1404 by Breanne Vazquez MT/US WRONG MD Addendum: 04/11/21 at 1407 by Breanne Vazquez MT/US ERASE/IGNORE PLS
--- NOTE | 2021-04-11 14:04 | NUR ---
CONSULTATION PAGED/CALLED Reason for Consultation: [] HTN Person Who was Notified: [] AMAN Consulting Physician: [] DR MENDEZ Rooming House Operator Specialty: [] FINANCIAL AID MANAGER Ordering Physician: [] DR OBANDO/DR PEREZ
[2021-04-11] MEDS ORDERED: NON-FORMULARY MEDICATION (Tramadol Hcl/Acetaminophen (Acetaminophn-Tramadol 325-37.5) 1 TA PO SCH (15:00)
[2021-04-11] MEDS: CYCLOBENZAPRINE HCL 10 MG TABLET (FLEXERIL) PO SCH ×2 (17:21→22:03)
[2021-04-11] MEDS: NORMAL SALINE 5 ML DISP.SYRIN IVF SCH ×2 (17:22→22:04)
[2021-04-11] MEDS ORDERED: ASPIRIN 81 MG TAB.CHEW PO ONE ×2 (19:52→21:00)
[2021-04-11 20:00] VITALS: BP_SYST 131
--- NOTE | 2021-04-11 21:00 | NUR ---
CALLED AND SPOKE TO THE PHARMACIST ABOUT HOME MEDICATIONS. PATIENT STATED THAT SHE'S NOT ALLERGIC TO MOTRIN AND IT'S OKAY FOR HER TO TAKE ASPIRIN WITH NO PROBLEM. HOME MEDS RECONCILE.
[2021-04-11 21:03] LABS: CHOLESTEROL 261 mg/dL (<200); HDL CHOLESTEROL 61 mg/dL (>55); LDL CHOLESTEROL 166 mg/dL (<100); TRIGLYCERIDES 159 mg/dL (30-150)
[2021-04-11] MEDS: MIRTAZAPINE 15 MG TABLET PO SCH (22:03)
[2021-04-11] MEDS: NORTRIPTYLINE HCL 10 MG CAPSULE PO SCH (22:04)
[2021-04-11] MEDS: ZOLPIDEM TARTRATE 5 MG TABLET PO PRN (22:09)
[2021-04-11] MEDS: NAPROXEN 250 MG TABLET PO SCH (22:10)
[2021-04-12] VITALS (7 sets, daily range): BP systolic 115–156
[2021-04-12] MEDS: NORMAL SALINE 5 ML DISP.SYRIN IVF SCH ×3 (06:07→22:05)
[2021-04-12 06:46] LABS: BASOPHILS % (AUTO) 0.5 % (0.0-2.0); EOSINOPHILS # (AUTO) 0.1 K/uL (0.0-0.4); EOSINOPHILS % (AUTO) 1.4 % (0.0-4.0); HEMATOCRIT 42.9 % (36-48); HEMOGLOBIN 14.9 g/dL (12.0-16.0); LYMPHOCYTES # (AUTO) 1.8 K/uL (1.0-5.5); LYMPHOCYTES % (AUTO) 20.2 % (20.5-51.5); MEAN CORPUSCULAR HEMOGLOBIN 29 pg (27-31); MEAN CORPUSCULAR HGB CONC 35 % (32-36); MEAN CORPUSCULAR VOLUME 84 fL (79.0-98.0); MONOCYTES # (AUTO) 0.9 K/uL (0.0-1.0); MONOCYTES % (AUTO) 10.1 % (1.7-9.3); NEUTROPHILS # (AUTO) 5.9 K/uL (1.8-7.7); NEUTROPHILS % (AUTO) 67.8 % (40.0-70.0); PLATELET COUNT (AUTO) 357 K/uL (130-430); RED BLOOD CELL COUNT(AUTO) 5.12 MIL/uL (4.2-6.2); RED CELL DISTRIBUTION WIDTH 13.4 % (9.0-15.0); WHITE BLOOD COUNT (AUTO) 8.7 K/uL (4.8-10.8)
[2021-04-12] MEDS: LEVOTHYROXINE SODIUM 0.125 MG TABLET PO SCH (06:56)
[2021-04-12 07:49] LABS: ANION GAP 11 (5-15); CHLORIDE 101 mmol/L (98-107); CREATININE 1.11 mg/dL (0.55-1.30); GLUCOSE 102 mg/dL (70-99); POTASSIUM 3.2 mmol/L (3.5-5.1); SODIUM SERUM 139 mmol/L (136-145); UREA NITROGEN, BLOOD 17 mg/dL (8-21)
[2021-04-12] MEDS ORDERED: predniSONE 20 MG TABLET PO SCH (09:00)
--- NOTE | 2021-04-12 09:30 | NUR ---
CRITICAL RESULT INFORMED DR OBANDO OF CRITICAL RESULTS OF MRI IN PERSON AT NURSE STATION
[2021-04-12] MEDS: CYCLOBENZAPRINE HCL 10 MG TABLET (FLEXERIL) PO SCH ×3 (09:34→22:04)
[2021-04-12] MEDS: GABAPENTIN 300 MG CAPSULE PO SCH ×2 (09:35→21:00)
[2021-04-12] MEDS: ATORVASTATIN 20 MG TABLET PO SCH (09:35)
[2021-04-12] MEDS: PANTOPRAZOLE SODIUM 40 MG TAB PO SCH (09:35)
[2021-04-12] MEDS: levoFLOXacin 500 MG TABLET PO SCH (09:35)
[2021-04-12] MEDS: NAPROXEN 250 MG TABLET PO SCH ×2 (09:35→21:00)
[2021-04-12] MEDS: amLODIPine BESYLATE 5 MG TABLET PO SCH (09:36)
[2021-04-12] MEDS: NORTRIPTYLINE HCL 10 MG CAPSULE PO SCH ×2 (09:36→22:03)
[2021-04-12] MEDS: Effexor 37.5 MG TAB PO SCH (09:36)
--- NOTE | 2021-04-12 09:46 | NUR ---
INFORMED CORTNEY KELLY THREE TIMES THAT THE PATIENT HAS BEEN OFF THE TELE MONITOR
--- NOTE | 2021-04-12 10:25 | NUR ---
CRITICAL RESULTS IN ADDITION TO NOTIFYING DR. OBANDO, DR. VALDEZ WAS LEFT A MESSAGE AND FAXED A COPY OF THE CRITICAL MRI RESULTS
--- NOTE | 2021-04-12 11:21 | NUR ---
Dietitian Recommendations *Recommend: Cardiac diet. Note: Pt refused ONS d/t dislike. *Consider checking HgbA1c. Please see Nutritional Assessment for details. LUIS CARLOS, RD
[2021-04-12] MEDS ORDERED: NOR10 PO (11:23)
[2021-04-12] MEDS ORDERED: methocarbamoL 500 MG TABLET PO PRN (11:30)
[2021-04-12] MEDS ORDERED: AMLO5TAB4 PO (12:19)
[2021-04-12] MEDS ORDERED: ASPI-1393 PO (12:19)
[2021-04-12] MEDS ORDERED: LIP20 PO (12:19)
[2021-04-12] MEDS ORDERED: POTASSIUM CHLORIDE 20 MEQ/PKT PACKET PO ONE (12:30)
--- NOTE | 2021-04-12 15:16 | NUR ---
director of community center [facility] left message with outside bilingual case manager Krista. re dc order with home health.
--- NOTE | 2021-04-12 15:25 | NUR ---
TALKED TO PTS DAUGHTER CALLED PTS DAUGHTER TO CONFIRM PTS HOME MEDICATIONS PER DR. MENDEZ'S REQUEST. PTS DAUGHTER CONFIRMED THAT GABAPENTIN AND CYCLOBENZAPRINE ARE PRN MEDS. WILL CALL PHARMACY TO FIX IN THE SYSTEM
--- NOTE | 2021-04-12 16:19 | NUR ---
Pt mario dc with [facility] [phone].
--- NOTE | 2021-04-12 16:49 | NUR ---
pATIENT C/O OF CHEST PAIN AFTER USING THE BATHROOM. BP WAS CHECKED BY CHERISE KELLY, IT WAS ELEVATED. DR OBANDO WAS CALLED , NO NEW ORDER EXCEPT TO CALL DR MENDEZ. DR MENDEZ WAS CALLED AND MD GAVE NEW ORDERS.
[2021-04-12] MEDS ORDERED: CARVEDILOL 3.125 MG TABLET (COREG) PO ONE (17:00)
[2021-04-12] MEDS ORDERED: NITROGLYCERIN 0.4 MG TAB.SUBL SL ONE (17:18)
[2021-04-12] MEDS: NITROGLYCERIN 0.4 MG TAB.SUBL SL PRN ×2 (17:29→17:34)
--- NOTE | 2021-04-12 17:50 | NUR ---
CHEST PAIN AFTER TALKING TO , 3 ROUND OF NITROGLYCERIN ORDERED. PTS PAIN IMPROVED FROM BEING 10/10 BEFORE TREATMENT TO 6/[address] MENDEZ HAS ORDERED NORCO 5-325MG. MEDICATION WILL BE ADMINISTERED PRESCRIBED. WILL CONTINUE TO MONITOR PT Addendum: 04/12/21 at 1814 by Cale Almeida LVN CALLED PTS FELISHA MARINELLI TO CONFIRM KNOWN ALLERGIES. DAUGHTER STATES PT IS NOT ALLERGIC TO HYDROCODONE. PT HAS TRUE ALLERGIES TO MORPHINE AND CODEINE STATED BY THE DAUGHTER. DAUGHTERS NUMBER IS [phone]
[2021-04-12] MEDS ORDERED: NALOXONE HCL 0.4 MG/ML AMP (NARCAN) IVP PRN (18:00)
[2021-04-12] MEDS: HYDROcodone/ACETAMIN 5-325 MG TAB (NORCO/ VICODIN) PO PRN (18:48)
[2021-04-12] MEDS: MIRTAZAPINE 15 MG TABLET PO SCH (22:03)
[2021-04-12] MEDS: ZOLPIDEM TARTRATE 5 MG TABLET PO PRN (22:04)
[2021-04-13 07:17] LABS: BASOPHILS # (AUTO) 0.1 K/uL (0.0-0.2); BASOPHILS % (AUTO) 0.6 % (0.0-2.0); EOSINOPHILS # (AUTO) 0.3 K/uL (0.0-0.4); EOSINOPHILS % (AUTO) 3.1 % (0.0-4.0); HEMATOCRIT 42.5 % (36-48); HEMOGLOBIN 14.8 g/dL (12.0-16.0); LYMPHOCYTES # (AUTO) 2.3 K/uL (1.0-5.5); MEAN CORPUSCULAR HEMOGLOBIN 29 pg (27-31); MEAN CORPUSCULAR HGB CONC 35 % (32-36); MEAN CORPUSCULAR VOLUME 84 fL (79.0-98.0); MONOCYTES # (AUTO) 0.9 K/uL (0.0-1.0); MONOCYTES % (AUTO) 10.8 % (1.7-9.3); NEUTROPHILS # (AUTO) 4.8 K/uL (1.8-7.7); NEUTROPHILS % (AUTO) 57.5 % (40.0-70.0); PLATELET COUNT (AUTO) 348 K/uL (130-430); RED BLOOD CELL COUNT(AUTO) 5.06 MIL/uL (4.2-6.2); RED CELL DISTRIBUTION WIDTH 13.6 % (9.0-15.0); WHITE BLOOD COUNT (AUTO) 8.3 K/uL (4.8-10.8)
[2021-04-13] MEDS: LEVOTHYROXINE SODIUM 0.125 MG TABLET PO SCH (07:19)
[2021-04-13] MEDS: NORMAL SALINE 5 ML DISP.SYRIN IVF SCH ×3 (07:19→22:21)
[2021-04-13 07:50] LABS: ALANINE AMINOTRANSFERASE 16 U/L (12-78); ALBUMIN 3.5 g/dL (3.4-4.8); ANION GAP 9 (5-15); ASPARTATE AMINOTRANSFERASE 12 U/L (10-37); CALCIUM 8.8 mg/dL (8.4-11.0); CHLORIDE 103 mmol/L (98-107); CREATININE 1.26 mg/dL (0.55-1.30); GLUCOSE 86 mg/dL (70-99); POTASSIUM 3.5 mmol/L (3.5-5.1); SODIUM SERUM 139 mmol/L (136-145); TOTAL BILIRUBIN 0.5 mg/dL (0.0-1.0); UREA NITROGEN, BLOOD 25 mg/dL (8-21)
[2021-04-13] MEDS: Effexor 37.5 MG TAB PO SCH (10:40)
[2021-04-13] MEDS: NORTRIPTYLINE HCL 10 MG CAPSULE PO SCH ×2 (10:41→20:59)
[2021-04-13] MEDS: CYCLOBENZAPRINE HCL 10 MG TABLET (FLEXERIL) PO SCH ×3 (10:41→20:59)
[2021-04-13] MEDS: PANTOPRAZOLE SODIUM 40 MG TAB PO SCH (10:41)
[2021-04-13] MEDS: GABAPENTIN 300 MG CAPSULE PO SCH ×3 (10:42→21:00)
[2021-04-13] MEDS: amLODIPine BESYLATE 5 MG TABLET PO SCH (10:43)
[2021-04-13] MEDS: ATORVASTATIN 20 MG TABLET PO SCH (10:44)
[2021-04-13] MEDS: levoFLOXacin 500 MG TABLET PO SCH (10:45)
[2021-04-13] MEDS: CARVEDILOL 3.125 MG TABLET (COREG) PO SCH ×2 (10:45→21:00)
[2021-04-13] MEDS: NAPROXEN 250 MG TABLET PO SCH ×2 (10:47→20:59)
[2021-04-13 12:37] VITALS: BP_SYST 148
[2021-04-13 16:50] VITALS: BP_SYST 149
--- NOTE | 2021-04-13 18:27 | NUR ---
DC TO SNF [facility] DOWEL STICKER OPERATOR AWARE THAT PATIENT HAS ORDERED TO TRANSFER TO SNF WHEN BED AVAILABLE. SHE SAID SHE WILL INFORM THE DOWEL STICKER OPERATOR IN CHARGE FOR [employer].
[2021-04-13 20:55] VITALS: BP_SYST 140
[2021-04-13] MEDS: ZOLPIDEM TARTRATE 5 MG TABLET PO PRN (20:59)
[2021-04-13] MEDS: MIRTAZAPINE 15 MG TABLET PO SCH (21:00)
[2021-04-14 00:39] VITALS: BP_SYST 103
[2021-04-14 06:35] LABS: ANION GAP 7 (5-15); CALCIUM 8.7 mg/dL (8.4-11.0); CHLORIDE 103 mmol/L (98-107); CREATININE 1.52 mg/dL (0.55-1.30); GLUCOSE 90 mg/dL (70-99); POTASSIUM 3.6 mmol/L (3.5-5.1); SODIUM SERUM 138 mmol/L (136-145); UREA NITROGEN, BLOOD 28 mg/dL (8-21)
[2021-04-14 06:38] LABS: BASOPHILS % (AUTO) 0.5 % (0.0-2.0); EOSINOPHILS # (AUTO) 0.3 K/uL (0.0-0.4); EOSINOPHILS % (AUTO) 2.7 % (0.0-4.0); HEMATOCRIT 40.8 % (36-48); LYMPHOCYTES # (AUTO) 2.5 K/uL (1.0-5.5); LYMPHOCYTES % (AUTO) 25.6 % (20.5-51.5); MEAN CORPUSCULAR HEMOGLOBIN 29 pg (27-31); MEAN CORPUSCULAR HGB CONC 34 % (32-36); MEAN CORPUSCULAR VOLUME 85 fL (79.0-98.0); MONOCYTES # (AUTO) 1.1 K/uL (0.0-1.0); MONOCYTES % (AUTO) 10.9 % (1.7-9.3); NEUTROPHILS % (AUTO) 60.3 % (40.0-70.0); PLATELET COUNT (AUTO) 308 K/uL (130-430); RED BLOOD CELL COUNT(AUTO) 4.82 MIL/uL (4.2-6.2); RED CELL DISTRIBUTION WIDTH 13.3 % (9.0-15.0); WHITE BLOOD COUNT (AUTO) 9.9 K/uL (4.8-10.8)
[2021-04-14] MEDS: NORMAL SALINE 5 ML DISP.SYRIN IVF SCH ×3 (07:03→20:59)
[2021-04-14] MEDS: LEVOTHYROXINE SODIUM 0.125 MG TABLET PO SCH (07:05)
[2021-04-14 08:00] VITALS: BP_SYST 139
[2021-04-14] MEDS: ATORVASTATIN 20 MG TABLET PO SCH (08:30)
[2021-04-14] MEDS: CYCLOBENZAPRINE HCL 10 MG TABLET (FLEXERIL) PO SCH ×3 (08:30→20:57)
[2021-04-14] MEDS: PANTOPRAZOLE SODIUM 40 MG TAB PO SCH (08:30)
[2021-04-14] MEDS: Effexor 37.5 MG TAB PO SCH (08:30)
[2021-04-14] MEDS: GABAPENTIN 300 MG CAPSULE PO SCH ×2 (08:30→20:57)
[2021-04-14] MEDS: amLODIPine BESYLATE 5 MG TABLET PO SCH (08:44)
[2021-04-14] MEDS: NORTRIPTYLINE HCL 10 MG CAPSULE PO SCH ×2 (08:48→20:56)
[2021-04-14] MEDS: levoFLOXacin 500 MG TABLET PO SCH (08:49)
[2021-04-14] MEDS: CARVEDILOL 3.125 MG TABLET (COREG) PO SCH ×2 (08:49→20:57)
[2021-04-14] MEDS: HYDROcodone/ACETAMIN 5-325 MG TAB (NORCO/ VICODIN) PO PRN (08:49)
[2021-04-14] MEDS ORDERED: traMADol HCL HCL 50 MG TABLET (ULTRAM) PO ONE (09:15)
[2021-04-14] MEDS ORDERED: GABAPENTIN 300 MG CAPSULE PO ONE (09:15)
--- NOTE | 2021-04-14 11:00 | NUR ---
Assume care: Received patient from CORTNEY Ashraf. Patient resting in bed. No s/s of acute distress noted. Fall and safety measures reinforced. Call light within reach.
[2021-04-14 12:01] VITALS: BP_SYST 132
[2021-04-14 12:50] VITALS: BP_SYST 138
--- NOTE | 2021-04-14 16:02 | NUR ---
CALLED [facility]/HCP CM ROLY OUTTEN TO INFORM THAT PT HAS ORDER FOR D/C WITH HOME HEALTH. MS DUNHAM CALLED BACK AND GAVE INFO: [facility] TEL # [phone] AUTHORIZATION # [id number] notified CORTNEY Chan.
--- NOTE | 2021-04-14 17:06 | NUR ---
RN NOTES/ (RE: DAUGHTER CONSTRUCTION SCHEDULER TIME); SPOKE TO THE PATIENT WHILE HAVING A PHONE CALL WITH HER DAUGHTER. PER FELISHA, THE DAUGHTER SHE WILL CONSTRUCTION SCHEDULER THE PATIENT AT [phone].
[2021-04-14 17:11] VITALS: BP_SYST 130
--- NOTE | 2021-04-14 18:51 | NUR ---
DR. OBANDO SPOKE TO THE PATIENT (RE: DC TOMORROW): PER DR. OBANDO MAY DISCHARGE PATIENT TOMORROW.
--- NOTE | 2021-04-14 19:26 | NUR ---
CLOSING NOTES: PATIENT RESTING IN BED. NO S/S OF ACUTE DISTRESS NOTED. NEEDS MET THROUGHOUT SHIFT. ENDORSED TO DISHWASHER PREPARER RN.
[2021-04-14 20:52] VITALS: BP_SYST 147
[2021-04-14] MEDS: traMADol HCL HCL 50 MG TABLET (ULTRAM) PO SCH (20:57)
[2021-04-14] MEDS: MIRTAZAPINE 15 MG TABLET PO SCH (20:57)
[2021-04-14] MEDS: ZOLPIDEM TARTRATE 5 MG TABLET PO PRN (22:17)
[2021-04-15 01:01] VITALS: BP_SYST 147
[2021-04-15] MEDS: NORMAL SALINE 5 ML DISP.SYRIN IVF SCH (06:36)
[2021-04-15] MEDS: LEVOTHYROXINE SODIUM 0.125 MG TABLET PO SCH (06:36)
[2021-04-15 07:02] LABS: BASOPHILS # (AUTO) 0.1 K/uL (0.0-0.2); BASOPHILS % (AUTO) 0.7 % (0.0-2.0); EOSINOPHILS # (AUTO) 0.4 K/uL (0.0-0.4); EOSINOPHILS % (AUTO) 4.7 % (0.0-4.0); HEMATOCRIT 39.1 % (36-48); HEMOGLOBIN 13.6 g/dL (12.0-16.0); LYMPHOCYTES # (AUTO) 2.1 K/uL (1.0-5.5); LYMPHOCYTES % (AUTO) 27.2 % (20.5-51.5); MEAN CORPUSCULAR HEMOGLOBIN 29 pg (27-31); MEAN CORPUSCULAR HGB CONC 35 % (32-36); MEAN CORPUSCULAR VOLUME 84 fL (79.0-98.0); MONOCYTES # (AUTO) 0.8 K/uL (0.0-1.0); MONOCYTES % (AUTO) 10.3 % (1.7-9.3); NEUTROPHILS # (AUTO) 4.4 K/uL (1.8-7.7); NEUTROPHILS % (AUTO) 57.1 % (40.0-70.0); PLATELET COUNT (AUTO) 284 K/uL (130-430); RED BLOOD CELL COUNT(AUTO) 4.66 MIL/uL (4.2-6.2); RED CELL DISTRIBUTION WIDTH 13.1 % (9.0-15.0); WHITE BLOOD COUNT (AUTO) 7.8 K/uL (4.8-10.8)
[2021-04-15 07:16] LABS: ALANINE AMINOTRANSFERASE 15 U/L (12-78); ALBUMIN 3.3 g/dL (3.4-4.8); ANION GAP 7 (5-15); ASPARTATE AMINOTRANSFERASE 14 U/L (10-37); CALCIUM 8.5 mg/dL (8.4-11.0); CHLORIDE 103 mmol/L (98-107); CREATININE 1.36 mg/dL (0.55-1.30); GLUCOSE 88 mg/dL (70-99); POTASSIUM 4.3 mmol/L (3.5-5.1); SODIUM SERUM 139 mmol/L (136-145); TOTAL BILIRUBIN 0.3 mg/dL (0.0-1.0); UREA NITROGEN, BLOOD 29 mg/dL (8-21)
[2021-04-15 08:00] VITALS: BP_SYST 146
[2021-04-15] MEDS: Effexor 37.5 MG TAB PO SCH (09:44)
[2021-04-15] MEDS: CYCLOBENZAPRINE HCL 10 MG TABLET (FLEXERIL) PO SCH (09:44)
[2021-04-15] MEDS: traMADol HCL HCL 50 MG TABLET (ULTRAM) PO SCH (09:45)
[2021-04-15] MEDS: CARVEDILOL 3.125 MG TABLET (COREG) PO SCH (09:46)
[2021-04-15] MEDS: PANTOPRAZOLE SODIUM 40 MG TAB PO SCH (09:46)
[2021-04-15] MEDS: amLODIPine BESYLATE 5 MG TABLET PO SCH (09:46)
[2021-04-15] MEDS: levoFLOXacin 500 MG TABLET PO SCH (09:46)
[2021-04-15] MEDS: ATORVASTATIN 20 MG TABLET PO SCH (09:47)
[2021-04-15] MEDS: NORTRIPTYLINE HCL 10 MG CAPSULE PO SCH (09:47)
[2021-04-15] MEDS: GABAPENTIN 300 MG CAPSULE PO SCH (09:53)
[2021-04-15 10:22] VITALS: BP_SYST 146
--- NOTE | 2021-04-15 11:17 | NUR ---
[facility]/HCP CMS MS WYMAN/MS OUTTEN WERE CALLED AND MESSAGES WERE LEFT ON THEIR PHONES, RE: TO ARRANGE FRONT WHEEL WALKER DELIVERY TO THE PT'S HOME.
--- NOTE | 2021-04-15 12:38 | NUR ---
[facility]/HCP CM MS RHINA WYMAN CALLED BACK TO CONFIRM THAT FRONT WHEEL WALKER WILL BE DELIVERED TO THE PT'S HOUSE.
--- NOTE | 2021-04-15 12:45 | NUR ---
RN NOTES: PATIENT'S DAUGHTER CAME TO MANAGER HELPDESK PATIENT. PRESCRIPTIONS AND DISCHARGE INSTRUCTIONS GIVEN TO THE DAUGHTER. VERBALIZED UNDERSTANDING.
--- NOTE | 2021-04-15 13:45 | NUR ---
RN NOTES: PATIENT REFUSED TO LEAVE WITHOUT THE WALKER BEING DELIVERED TO THEM. DAUGHTER LEFT AND SAID SHE'LL COME BACK WHEN WALKER IS ALREADY HERE. CALLED PRINT INSPECTOR TO FF-UP ON DME.
--- NOTE | 2021-04-15 14:50 | NUR ---
RN NOTES: MILITARY SOURCE OPERATIONS OFFICER CHRISSIE CAME AND BROUGHT A WALKER FOR PATIENT TO TAKE HOME WITH. CALLED DAUGHTER TO PATIENT ESCORT PATIENT.
--- NOTE | 2021-04-15 14:55 | NUR ---
RN NOTES:DAUGHTER CAME. PATIENT IS NOT IN DISTRESS. NOT IN PAIN. DISCHARGED STABLE BY WHEELCHAIR. DAUGHTER WAITING OUTSIDE.
== END 2021-04-15 14:55 | disposition home health service (06) | DRG 64 ==
LOC: SED 20:15 → STU 23:31 → SMU 04-14 19:57
PROVIDERS: ADMIT Internal Medicine Hospice and Palliative Medicine; ATTEND Internal Medicine Hospice and Palliative Medicine
DX: I63.9 Cerebral infarction, unspecified (principal); N17.0 Acute kidney failure with tubular necrosis; G81.91 Hemiplegia, unspecified affecting right dominant side; J44.9 Chronic obstructive pulmonary disease, unspecified; G89.29 Other chronic pain; E83.41 Hypermagnesemia; E87.6 Hypokalemia; I10 Essential (primary) hypertension; M79.7 Fibromyalgia; Z96.652 Presence of left artificial knee joint; E89.0 Postprocedural hypothyroidism; K27.9 Peptic ulcer, site unspecified, unspecified as acute or chronic, without hemorrhage or perforation; E88.09 Other disorders of plasma-protein metabolism, not elsewhere classified; E78.2 Mixed hyperlipidemia; R73.9 Hyperglycemia, unspecified; Z20.822 Contact with and (suspected) exposure to COVID-19; Z79.01 Long term (current) use of anticoagulants; Z87.11 Personal history of peptic ulcer disease
CPT/HCPCS: 36415; 70450-TC; 70496; 70498; 70551; 71045; 76376; 80048; 80053; 80061; 82550; 83735; 84100; 84484; 85025; 85610-TC; 85730-TC; 93005; 93306; 93880; 97110-GP; 97112-GP; 97116-GP; 97163-GP; 97530-GP; 99285; G0378; J2060; Q9967

== ENCOUNTER 2021-06-09 22:04 | Emergency (ER) | payer OTHER, SELFPAY ==
[~2021-06-09] VITALS: Ht 177.8 cm; Wt 68.0 kg
[~2021-06-09 22:04] MED LIST changes: +ASPI-1393 PO; +LIP20 PO
[2021-06-09 23:00] VITALS: BP_SYST 148
--- NOTE | 2021-06-09 23:05 | NUR ---
Patient triaged and placed in waiting room. VS checked and patient appears in no acute distress at this time. Accompanied by family, awaiting available bed, and MD notified of need for MSE.
--- NOTE | 2021-06-10 01:02 | NUR ---
Patient to ER bed 2 to gown for evaluation. Side rails up.
--- NOTE | 2021-06-10 01:02 | NUR ---
C/O FELL DOWN THE STAIRS (11 STAIRS), STATES GLIDED DOWN. DENIES HEAD TRAUMA. DENIES LOC, N/V. REPORTS NECK PAIN AND BACK PAIN STATES MISSED A STEP.
[2021-06-10] MEDS ORDERED: KETOROLAC TROMETHAMINE 30 MG VIAL IM ONE (01:15)
[2021-06-10] MEDS ORDERED: KETOROLAC TROMETHAMINE 30 MG VIAL ONE (01:33)
--- NOTE | 2021-06-10 02:30 | NUR ---
DR. ALVAREZ AT BEDSIDE FOR MSE
[2021-06-10 03:30] VITALS: BP_SYST 148
--- NOTE | 2021-06-10 03:35 | NUR ---
Patient given written and verbal discharge instructions and verbalizes understanding. ER MD discussed with patient the results and treatment provided. Patient in stable condition. ID arm band removed. Rx of NONE given. Patient educated on pain management and to follow up with PMD. Pain Scale 2. Opportunity for questions provided and answered. Medication side effect fact sheet provided.
== END 2021-06-10 03:35 | disposition home or self-care (01) ==
LOC: SED 22:04
DX: S10.93XA Contusion of unspecified part of neck, initial encounter (principal); S20.222A Contusion of left back wall of thorax, initial encounter; W10.9XXA Fall (on) (from) unspecified stairs and steps, initial encounter; Y93.89 Activity, other specified; Y92.89 Other specified places as the place of occurrence of the external cause; Y99.8 Other external cause status
CPT/HCPCS: 71046; 72040; 72125; 76376; 96372; 99284; J1885

== ENCOUNTER 2022-01-20 14:55 | Inpatient (IN) | payer OTHER ==
[~2022-01-20] VITALS: Ht 177.8 cm; Wt 66.2 kg
[~2022-01-20 14:55] MED LIST changes: +LEVO-62 PO; -LEVO500T90 PO
[2022-01-20 15:06] VITALS: BP_SYST 154
--- NOTE | 2022-01-20 15:06 | NUR ---
Patient BIB Daughter, per daughter patient called and stated her friend noted her with confused speech. Per daughter patient had Stroke in Mar 2022 and has left sided deficit with weakness. PMH HTN.
--- NOTE | 2022-01-20 15:07 | NUR ---
Patient taken and returned from CT Imaging
--- NOTE | 2022-01-20 15:08 | NUR ---
Labs drawn and sent
--- NOTE | 2022-01-20 15:08 | NUR ---
Tele Neuro in progress
--- NOTE | 2022-01-20 15:08 | NUR ---
# 20 gauge angiocath placed to LFA. Use of asceptic technique. Opsite placed over site. Blood return noted. Blood for lab drawn from site. Flushed with 10 cc of normal saline. No evidence of infiltration noted. Patient tolerated well.
[2022-01-20] MEDS ORDERED: GABA-333 PO (15:09)
[2022-01-20] MEDS ORDERED: CYCL10TA25 PO (15:09)
[2022-01-20] MEDS ORDERED: TRAM50TA2 PO (15:09)
[2022-01-20] MEDS ORDERED: NOR10 PO (15:09)
[2022-01-20] MEDS ORDERED: ZOLP10TA6 PO (15:09)
[2022-01-20] MEDS ORDERED: METH-634 PO (15:09)
[2022-01-20] MEDS ORDERED: LEVO112C4 PO (15:09)
--- NOTE | 2022-01-20 15:09 | NUR ---
Medication reconciliation completed with information provided by FAMILY. Any prior medication reconciliation on file was reviewed and corrected.
[2022-01-20 15:46] LABS: BASOPHILS # (AUTO) 0.1 K/uL (0.0-0.2); EOSINOPHILS # (AUTO) 0.4 K/uL (0.0-0.4); EOSINOPHILS % (AUTO) 4.3 % (0.0-4.0); HEMATOCRIT 38.3 % (36-48); HEMOGLOBIN 13.4 g/dL (12.0-16.0); LYMPHOCYTES % (AUTO) 22.5 % (20.5-51.5); MEAN CORPUSCULAR HEMOGLOBIN 30 pg (27-31); MEAN CORPUSCULAR HGB CONC 35 % (32-36); MEAN CORPUSCULAR VOLUME 86 fL (79.0-98.0); MONOCYTES # (AUTO) 0.7 K/uL (0.0-1.0); MONOCYTES % (AUTO) 7.9 % (1.7-9.3); NEUTROPHILS # (AUTO) 5.6 K/uL (1.8-7.7); NEUTROPHILS % (AUTO) 64.3 % (40.0-70.0); PLATELET COUNT (AUTO) 318 K/uL (130-430); RED BLOOD CELL COUNT(AUTO) 4.45 MIL/uL (4.2-6.2); RED CELL DISTRIBUTION WIDTH 14.3 % (9.0-15.0); WHITE BLOOD COUNT (AUTO) 8.7 K/uL (4.8-10.8)
[2022-01-20] MEDS ORDERED: ENALAPRILAT DIHYDRATE 1.25 MG/ML VIAL IVP ONE (16:15)
[2022-01-20 16:27] LABS: ANION GAP 8 (5-15); CALCIUM 9.5 mg/dL (8.4-11.0); CHLORIDE 100 mmol/L (98-107); CREATININE 1.24 mg/dL (0.55-1.30); GLUCOSE 90 mg/dL (70-99); POTASSIUM 3.7 mmol/L (3.5-5.1); UREA NITROGEN, BLOOD 22 mg/dL (8-21)
[2022-01-20 16:28] LABS: INR 0.9 (0.8-1.2); PROTHROMBIN TIME 9.3 SECS (9.5-12.5)
[2022-01-20 16:36] LABS: ALANINE AMINOTRANSFERASE 12 U/L (12-78); ALBUMIN 3.9 g/dL (3.4-4.8); ASPARTATE AMINOTRANSFERASE 16 U/L (10-37); TOTAL BILIRUBIN 0.3 mg/dL (0.0-1.0)
--- NOTE | 2022-01-20 16:52 | NUR ---
Covid Swab collected and sent to lab
--- NOTE | 2022-01-20 18:56 | NUR ---
Admit bed requested Patient will be admitted to care of . Admitted to TELE unit. Diagnosis STROKE Inpatient (Yes or No) YES Observation (Yes or No) NO Orientation concerns or request close to nursing station (Yes or No) NO Covid Status NEGATIVE On vent or bipap NO Isolation requirements NI Needs a sitter NO From Home (Yes or if No enter name of facility) HOME Requires Dialysis (Yes or No) NO Med Rec Completed (Yes of No) YES
--- NOTE | 2022-01-20 19:07 | NUR ---
Closing Note Report given to incoming NOC RN, all cares endorsed.
[2022-01-20 23:15] VITALS: BP_SYST 135
[2022-01-21 04:00] VITALS: BP_SYST 138
[2022-01-21 07:06] LABS: BILIRUBIN,URINE NEGATIVE (NEGATIVE); BLOOD, URINE NEGATIVE (NEGATIVE); CLARITY/URINE CLEAR (CLEAR); COLOR,URINE YELLOW (YELLOW); GLUCOSE,URINE NEGATIVE (NEGATIVE); KETONES,URINE NEGATIVE (NEGATIVE); LEUKOCYTE ESTERASE ,URINE NEGATIVE (NEGATIVE); NITRITE, URINE NEGATIVE (NEGATIVE); PH,URINE 6.5 (5.0-8.0); PROTEIN URINE NEGATIVE (NEGATIVE); UROBILINOGEN,URINE 0.2 (0.2-1.0)
[2022-01-21 08:10] VITALS: BP_SYST 148
--- NOTE | 2022-01-21 09:49 | NUR ---
Attending Md Dr vEon Massey was called, re: order for Ativan, pt is agitated and anxious. Left a voice message on his cell.
[2022-01-21 11:25] VITALS: BP_SYST 106
--- NOTE | 2022-01-21 11:56 | NUR ---
DR OBANDO IS HERE, COVERING FOR DR BECERRIL. REMINDED MD RE PT'S HOME MED RECON.
[2022-01-21] MEDS ORDERED: LEVOTHYROXINE SODIUM 0.125 MG TABLET PO SCH (12:30)
[2022-01-21] MEDS ORDERED: NON-FORMULARY MEDICATION (Tramadol Hcl/Acetaminophen (Acetaminophn-Tramadol 325-37.5) 1 TA PO PRN (12:30)
[2022-01-21] MEDS ORDERED: NAPROXEN 250 MG TABLET PO PRN (12:30)
--- NOTE | 2022-01-21 12:50 | NUR ---
CONSULTATION PAGED/CALLED Reason for Consultation: [] CVA Person Who was Notified: [] LIZZY Consulting Physician: [] DR WILSON (COVERING FOR DR Lanny VALDEZ Flag Football Coach Specialty: [] NEURO Ordering Physician: [] DR OBANDO
[2022-01-21] MEDS ORDERED: ASPIRIN 81 MG TABLET(ECOTRIN) PO ONE (13:00)
[2022-01-21] MEDS ORDERED: PANTOPRAZOLE SODIUM 40 MG TAB PO ONE (13:00)
[2022-01-21] MEDS ORDERED: amLODIPine BESYLATE 10 MG TABLET PO ONE (13:00)
[2022-01-21] MEDS ORDERED: LEVOTHYROXINE SODIUM 0.112 MG TABLET PO ONE (13:45)
[2022-01-21] MEDS: GABAPENTIN 300 MG CAPSULE PO SCH ×2 (15:02→20:51)
[2022-01-21] MEDS: NORTRIPTYLINE HCL 10 MG CAPSULE PO SCH ×2 (15:02→20:50)
[2022-01-21 15:35] VITALS: BP_SYST 154
[2022-01-21] MEDS ORDERED: levoFLOXacin 500 MG TABLET PO ONE (16:00)
--- NOTE | 2022-01-21 19:00 | NUR ---
Received patient AOX4.On RA.SR on monitor.Not in respiratory distress noted.IVL L hand g 20, patent and intact. Neuro assessment performed.NIHS score of 1, right sided droop noted.Bed in lowest position.Bedside table and call light are within reach.
[2022-01-21 20:00] VITALS: BP_SYST 132
[2022-01-21] MEDS: ATORVASTATIN 20 MG TABLET PO SCH (20:51)
[2022-01-21] MEDS: methocarbamoL 500 MG TABLET PO SCH (20:51)
[2022-01-21] MEDS: CYCLOBENZAPRINE HCL 10 MG TABLET (FLEXERIL) PO SCH (20:52)
[2022-01-21] MEDS: traMADol HCL HCL 50 MG TABLET (ULTRAM) PO SCH (20:52)
[2022-01-21] MEDS: MIRTAZAPINE 15 MG TABLET PO SCH (20:52)
--- NOTE | 2022-01-21 21:00 | NUR ---
Scheduled medications given as ordered.
[2022-01-22] VITALS: BP_SYST 139
--- NOTE | 2022-01-22 | NUR ---
Assisted pt to rest room using an assistive device-front wheel walker.Pt tolerated well.
--- NOTE | 2022-01-22 02:00 | NUR ---
Rounds made.Pt is asleep.Not in respiratory distress noted.
[2022-01-22] MEDS: LEVOTHYROXINE SODIUM 0.112 MG TABLET PO SCH (06:11)
--- NOTE | 2022-01-22 07:01 | NUR ---
ENDORSED TO AM RN FOR CONTINUITY OF CARE.PT IS NOT IN RESPIRATORY DISTRESS NOTED
--- NOTE | 2022-01-22 07:01 | NUR ---
ENDORSED TO AM RN FOR CONTINUITY OF CARE.PT IS NOT IN RESPIRATORY DISTRESS NOTED
--- NOTE | 2022-01-22 07:30 | NUR ---
OPENING NOTE: PATIENT RESTING IN BED. BREATHING EVEN AND UNLABORED TO RA. DENIES ANY DISCOMFORT AT THIS TIME. FALL AND SAFETY MEASURES REINFORCED. CALL LIGHT WITHIN REACH.
[2022-01-22 08:30] VITALS: BP_SYST 136
[2022-01-22] MEDS: amLODIPine BESYLATE 10 MG TABLET PO SCH (08:39)
[2022-01-22] MEDS: Effexor 37.5 MG TAB PO SCH (08:40)
[2022-01-22] MEDS: PANTOPRAZOLE SODIUM 40 MG TAB PO SCH (08:40)
[2022-01-22] MEDS: traMADol HCL HCL 50 MG TABLET (ULTRAM) PO SCH ×2 (08:40→21:36)
[2022-01-22] MEDS: NORTRIPTYLINE HCL 10 MG CAPSULE PO SCH ×3 (08:40→21:35)
[2022-01-22] MEDS: CYCLOBENZAPRINE HCL 10 MG TABLET (FLEXERIL) PO SCH ×3 (08:40→21:35)
[2022-01-22] MEDS: levoFLOXacin 500 MG TABLET PO SCH (08:41)
[2022-01-22] MEDS: methocarbamoL 500 MG TABLET PO SCH ×2 (08:42→21:31)
[2022-01-22] MEDS: GABAPENTIN 300 MG CAPSULE PO SCH ×3 (08:42→21:31)
[2022-01-22] MEDS ORDERED: ASPIRIN 81 MG TABLET(ECOTRIN) PO SCH ×2 (09:00)
[2022-01-22 12:05] VITALS: BP_SYST 131
--- NOTE | 2022-01-22 13:00 | NUR ---
RN notes: ASSISTED PATIENT TO THE BATHROOM W/ WALKER. NO S/S OF ACUTE DISTRESS NOTED. NO WEAKNESS NOTED.
[2022-01-22 15:55] VITALS: BP_SYST 126
[2022-01-22 19:00] VITALS: BP_SYST 135
--- NOTE | 2022-01-22 19:20 | NUR ---
CLOSING NOTES: PATIENT RESTING IN BED. NO S/S OF ACUTE DISTRESS NOTED. NEEDS MET THROUGHOUT SHIFT. ENDORSED TO INSECTICIDE MIXER RN.
[2022-01-22 21:29] VITALS: BP_SYST 138
[2022-01-22] MEDS: ATORVASTATIN 20 MG TABLET PO SCH (21:31)
[2022-01-22] MEDS: MIRTAZAPINE 15 MG TABLET PO SCH (21:32)
[2022-01-23 01:57] VITALS: BP_SYST 109
[2022-01-23 04:21] VITALS: BP_SYST 128
[2022-01-23 06:55] LABS: BASOPHILS # (AUTO) 0.1 K/uL (0.0-0.2); BASOPHILS % (AUTO) 0.9 % (0.0-2.0); EOSINOPHILS # (AUTO) 0.4 K/uL (0.0-0.4); EOSINOPHILS % (AUTO) 5.3 % (0.0-4.0); HEMATOCRIT 37.5 % (36-48); HEMOGLOBIN 13.2 g/dL (12.0-16.0); LYMPHOCYTES # (AUTO) 2.5 K/uL (1.0-5.5); LYMPHOCYTES % (AUTO) 31.6 % (20.5-51.5); MEAN CORPUSCULAR HEMOGLOBIN 30 pg (27-31); MEAN CORPUSCULAR HGB CONC 35 % (32-36); MEAN CORPUSCULAR VOLUME 86 fL (79.0-98.0); MONOCYTES # (AUTO) 0.6 K/uL (0.0-1.0); MONOCYTES % (AUTO) 7.5 % (1.7-9.3); NEUTROPHILS # (AUTO) 4.3 K/uL (1.8-7.7); NEUTROPHILS % (AUTO) 54.7 % (40.0-70.0); PLATELET COUNT (AUTO) 293 K/uL (130-430); RED BLOOD CELL COUNT(AUTO) 4.35 MIL/uL (4.2-6.2); RED CELL DISTRIBUTION WIDTH 13.9 % (9.0-15.0); WHITE BLOOD COUNT (AUTO) 7.9 K/uL (4.8-10.8)
[2022-01-23 07:14] LABS: ALANINE AMINOTRANSFERASE 15 U/L (12-78); ALBUMIN 3.2 g/dL (3.4-4.8); ANION GAP 9 (5-15); ASPARTATE AMINOTRANSFERASE 14 U/L (10-37); CALCIUM 7.8 mg/dL (8.4-11.0); CHLORIDE 102 mmol/L (98-107); CREATININE 1.45 mg/dL (0.55-1.30); GLUCOSE 83 mg/dL (70-99); POTASSIUM 3.5 mmol/L (3.5-5.1); TOTAL BILIRUBIN 0.4 mg/dL (0.0-1.0); UREA NITROGEN, BLOOD 30 mg/dL (8-21)
--- NOTE | 2022-01-23 07:37 | NUR ---
MORNING ROUNDS: PATIENT AWAKE,LYING ON THE BED. O2 2-3L/MIN. NO SOB. CALL LIGHT WITH IN REACH. BED LOCKED AT LOWEST POSITION. STABLE. Addendum: 01/23/22 at 0740 by Socorro Zhang RN CORRECTED ABOVE NOTES: NOT INTENDED FOR THE ABOVE PATIENT.
--- NOTE | 2022-01-23 07:40 | NUR ---
MORNING ROUNDS: BEDSIDE REPORT GIVEN BY NIGHT NURSE PETE. PATIENT IS AWAKE,ON THE BED. CALL LIGHT WITH IN REACH. BED LOCKED AT LOWEST POSITION. NOT IN ANY RESPIRATORY DISTRESS.
[2022-01-23 08:10] VITALS: BP_SYST 151
[2022-01-23] MEDS: LEVOTHYROXINE SODIUM 0.112 MG TABLET PO SCH (09:00)
[2022-01-23] MEDS ORDERED: ASPIRIN 325 MG TABLET (ECOTRIN) PO SCH (09:00)
[2022-01-23] MEDS: PANTOPRAZOLE SODIUM 40 MG TAB PO SCH (09:01)
[2022-01-23] MEDS: amLODIPine BESYLATE 10 MG TABLET PO SCH (09:03)
[2022-01-23] MEDS: methocarbamoL 500 MG TABLET PO SCH (09:04)
[2022-01-23] MEDS ORDERED: GABAPENTIN 400 MG CAPSULE PO ONE (09:15)
[2022-01-23] MEDS: NORTRIPTYLINE HCL 10 MG CAPSULE PO SCH ×2 (09:17→15:06)
[2022-01-23] MEDS: traMADol HCL HCL 50 MG TABLET (ULTRAM) PO SCH (09:17)
[2022-01-23] MEDS: levoFLOXacin 500 MG TABLET PO SCH (09:18)
[2022-01-23] MEDS: Effexor 37.5 MG TAB PO SCH (09:18)
--- NOTE | 2022-01-23 10:10 | NUR ---
MRI: PATIENT TO MRI VIA WHEELCHAIR.
--- NOTE | 2022-01-23 10:30 | NUR ---
Back From Mri: Patient back from Mri and put back to heart monitor. Stable.
[2022-01-23 12:40] VITALS: BP_SYST 143
[2022-01-23] MEDS ORDERED: ECO325 PO (14:30)
--- NOTE | 2022-01-23 14:30 | NUR ---
HOSPITALIST: DR BECERRIL EXPLAINED RESULTS OF MRI TO PATIENT IN THE ROOM.CLEARED HOME BY NEUROLOGIST DR WILSON ,WHO SPOKE TO PATIENT EARLIER IN THE ROOM.F/U WITH HER OWN NEUROLOGIST C/O DR THOMAS SCHEDULED.
[2022-01-23 14:40] VITALS: BP_SYST 136
[2022-01-23] MEDS: GABAPENTIN 400 MG CAPSULE PO SCH ×2 (15:00→15:07)
[2022-01-23 16:14] VITALS: BP_SYST 136
--- NOTE | 2022-01-23 17:00 | NUR ---
D/C Patient Patient given medication reconciliation form and D/C instructions. Exit Care provided. Patient verbalized understanding. MD discussed with patient the results and treatment provided. Self Propelled Mining Machine Operator wheeled patient for discharge to home. Patient in stable condition, ID band removed. IV catheter removed, intact and dressing applied, no active bleeding. E-script send to patient's preferred pharmacy. Patient educated on pain management. All belongings sent with patient.Patient was accompanied home by her daughter Nancy in stable condition.
--- NOTE | 2022-01-23 17:03 | NUR ---
Dietitian Recommendations * Continue mechanical soft diet * Ensure Enlive (strawberry) daily * Recommend daily MVI Please refer to nutrition assessment for details, thanks! CC, MPH, RDN
--- NOTE | 2022-01-24 08:37 | NUR ---
Dispo code 01
== END 2022-01-23 17:30 | disposition home or self-care (01) | DRG 65 ==
LOC: SED 14:55 → STU 18:14
PROVIDERS: ADMIT Specialist; ATTEND Specialist
DX: I63.9 Cerebral infarction, unspecified (principal); I69.351 Hemiplegia and hemiparesis following cerebral infarction affecting right dominant side; M79.7 Fibromyalgia; I10 Essential (primary) hypertension; E78.5 Hyperlipidemia, unspecified; E89.0 Postprocedural hypothyroidism; G89.29 Other chronic pain; Z96.652 Presence of left artificial knee joint; Z20.822 Contact with and (suspected) exposure to COVID-19; R47.81 Slurred speech; Z79.899 Other long term (current) drug therapy; Z87.11 Personal history of peptic ulcer disease; Z88.5 Allergy status to narcotic agent; Z88.8 Allergy status to other drugs, medicaments and biological substances; Z79.82 Long term (current) use of aspirin
CPT/HCPCS: 36415; 70450-TC; 70551; 71045; 76376; 80053; 81003; 84484; 85025; 85610-TC; 85730-TC; 93005; 96374; 99291; G0378

== ENCOUNTER 2022-12-29 17:14 | Emergency (ER) | payer OTHER ==
[~2022-12-29] VITALS: Ht 177.8 cm; Wt 63.5 kg
[~2022-12-29 17:14] MED LIST changes: -AMLO5TAB4 PO; -ASPI-1393 PO; +CYCL10TA25 PO; +ECO325 PO; +LEVO112C4 PO; -LEVO125T8 PO; +METH-634 PO; -NAPR-1172 PO; +NOR10 PO; -TRAM-350 PO; +TRAM50TA2 PO; -ZOLP10TA2 PO; +ZOLP10TA6 PO
[2022-12-29 17:58] VITALS: BP_SYST 166; PULSE 80; RESP 14; TEMP 97.7; O2SAT 97
[2022-12-29] MEDS ORDERED: ACETAMINOPHEN 500 MG TABLET PO ONE (18:15)
[2022-12-29] MEDS ORDERED: DIPHTH,PERTUSS(ACELL),TET VAC 0.5 ML VIAL (Tdap) I.M. ONE (18:15)
[2022-12-29] MEDS ORDERED: LIDOCAINE 1%, 20 ML MDV 20 ML ONE (19:14)
[2022-12-29] MEDS ORDERED: CEPH250C PO (20:48)
[2022-12-29 21:15] VITALS: BP_SYST 166; PULSE 80; RESP 14; TEMP 97.7; O2SAT 97
== END 2022-12-29 21:15 | disposition home or self-care (01) ==
LOC: SED 17:14
DX: S01.81XA Laceration without foreign body of other part of head, initial encounter (principal); H11.32 Conjunctival hemorrhage, left eye; I10 Essential (primary) hypertension; Z88.5 Allergy status to narcotic agent; Z88.6 Allergy status to analgesic agent; Z88.8 Allergy status to other drugs, medicaments and biological substances; Z79.899 Other long term (current) drug therapy; W18.40XA Slipping, tripping and stumbling without falling, unspecified, initial encounter; Y93.89 Activity, other specified; Y92.89 Other specified places as the place of occurrence of the external cause; Y99.8 Other external cause status
CPT/HCPCS: 99285; 70450; 71045; 82962; 83880; 84484; 36415; 70486; 72125; 90715; 90471; 12011; 93005; 76376; J2001

== ENCOUNTER 2023-01-22 11:27 | Inpatient (IN) | payer OTHER ==
[~2023-01-22] VITALS: Ht 175.3 cm; Wt 63.5 kg
[~2023-01-22 11:27] MED LIST changes: +CEPH250C PO
[2023-01-22 11:34] VITALS: BP_SYST 132; PULSE 113; RESP 18; TEMP 97; O2SAT 97
[2023-01-22] MEDS ORDERED: NS 1000 ML IV.SOLN IV ONE (11:45)
[2023-01-22 12:00] LABS: BASOPHILS % (AUTO) 0.3 % (0.0-2.0); HEMATOCRIT 24.8 % (36-48); HEMOGLOBIN 8.4 g/dL (12.0-16.0); LYMPHOCYTES # (AUTO) 1.4 K/uL (1.0-5.5); LYMPHOCYTES % (AUTO) 10.5 % (20.5-51.5); MEAN CORPUSCULAR HEMOGLOBIN 30 pg (27-31); MEAN CORPUSCULAR HGB CONC 34 % (32-36); MEAN CORPUSCULAR VOLUME 90 fL (79.0-98.0); MONOCYTES # (AUTO) 0.4 K/uL (0.0-1.0); MONOCYTES % (AUTO) 3.3 % (1.7-9.3); NEUTROPHILS # (AUTO) 11.5 K/uL (1.8-7.7); NEUTROPHILS % (AUTO) 85.9 % (40.0-70.0); PLATELET COUNT (AUTO) 371 K/uL (130-430); RED BLOOD CELL COUNT(AUTO) 2.75 MIL/uL (4.2-6.2); RED CELL DISTRIBUTION WIDTH 13.5 % (9.0-15.0); WHITE BLOOD COUNT (AUTO) 13.4 K/uL (4.8-10.8)
[2023-01-22 12:26] LABS: ALANINE AMINOTRANSFERASE 48 U/L (12-78); ALBUMIN 3.6 g/dL (3.4-4.8); ANION GAP 16 (5-15); ASPARTATE AMINOTRANSFERASE 46 U/L (10-37); CALCIUM 8.4 mg/dL (8.4-11.0); CARBON DIOXIDE 23 mmol/L (23-29); CHLORIDE 112 mmol/L (98-107); CREATININE 1.74 mg/dL (0.55-1.30); GLUCOSE 197 mg/dL (74-106); SODIUM SERUM 151 mmol/L (136-145); TOTAL BILIRUBIN 0.3 mg/dL (0.0-1.0); TOTAL PROTEIN, SERUM 6.9 g/dL (6.4-8.3); UREA NITROGEN, BLOOD 86 mg/dL (8-21)
[2023-01-22 12:52] LABS: BILIRUBIN,URINE NEGATIVE (NEGATIVE); BLOOD, URINE NEGATIVE (NEGATIVE); CLARITY/URINE CLEAR (CLEAR); COLOR,URINE YELLOW (YELLOW); GLUCOSE,URINE NEGATIVE (NEGATIVE); KETONES,URINE NEGATIVE (NEGATIVE); LEUKOCYTE ESTERASE ,URINE NEGATIVE (NEGATIVE); NITRITE, URINE NEGATIVE (NEGATIVE); PH,URINE 5.5 (5.0-8.0); PROTEIN URINE NEGATIVE (NEGATIVE); UROBILINOGEN,URINE 0.2 (0.2-1.0)
[2023-01-22] MEDS ORDERED: PIPERACILLIN/TAZO 3.375 GM in NS 50 ML IV ONE (13:45)
[2023-01-22] MEDS ORDERED: D5W 100 ML IV ONE (14:00)
[2023-01-22] MEDS ORDERED: PIPERACILLIN/TAZO 3.375/DEX-IS 50 ML IV SCH (14:00)
[2023-01-22] MEDS ORDERED: D5NS 1,000 ML IV SCH (14:00)
[2023-01-22] MEDS ORDERED: PIPERACILLIN/TAZOBACTAM 3.375 GM/VIAL (ZOSYN) IV ONE (15:15)
[2023-01-22] MEDS: D5W 1,000 ML IV SCH (16:15)
[2023-01-22] MEDS ORDERED: NORT10CA PO (18:07)
[2023-01-22] MEDS ORDERED: GABA-333 PO (18:07)
[2023-01-22] MEDS ORDERED: ALPR0.5T8 PO (18:07)
[2023-01-22] MEDS ORDERED: NOR10 PO (18:10)
[2023-01-22] MEDS ORDERED: CLOP75TA32 PO (18:10)
[2023-01-22] MEDS ORDERED: LEVO125C4 PO (18:10)
[2023-01-22] MEDS ORDERED: TRAZ50TA54 PO (18:10)
[2023-01-22] MEDS ORDERED: MIRT-91 PO (18:10)
[2023-01-22] MEDS ORDERED: ZOLP10TA6 PO (18:10)
[2023-01-22 20:20] VITALS: BP_SYST 121; PULSE 73; RESP 16; TEMP 98.1
[2023-01-22] MEDS ORDERED: PIPERACILLIN/TAZOBACTAM 2.25 GM VIAL IV ONE (23:44)
[2023-01-23] VITALS (7 sets, daily range): BP systolic 113–131; PULSE 73–82; RESP 16–18; TEMP 96.5–98.8; O2SAT 96–99
[2023-01-23] MEDS: PIPERACILLIN/TAZOBACTAM 2.25 GM/ DEX-IS 50 ML PREMIX IV SCH ×4 (00:14→17:15)
[2023-01-23] MEDS: D5W 1,000 ML IV SCH ×2 (01:21→12:32)
[2023-01-23] MEDS ORDERED: amLODIPine BESYLATE 10 MG TABLET PO SCH (08:45)
[2023-01-23] MEDS ORDERED: PANTOPRAZOLE SODIUM 40 MG TAB PO SCH (09:00)
[2023-01-23] MEDS: Effexor 37.5 MG TAB PO SCH (10:40)
[2023-01-23] MEDS: amLODIPine BESYLATE 10 MG TABLET PO SCH (10:40)
[2023-01-23] MEDS: levoFLOXacin 500 MG TABLET PO SCH (10:40)
[2023-01-23] MEDS: ASPIRIN 325 MG TABLET (ECOTRIN) PO SCH (10:41)
[2023-01-23] MEDS: CLOPIDOGREL BISULFATE 75 MG TABLET PO SCH (10:41)
[2023-01-23] MEDS: traMADol HCL HCL 50 MG TABLET (ULTRAM) PO SCH ×2 (10:42→20:56)
[2023-01-23] MEDS ORDERED: ONDANSETRON HCL 4 MG/2 ML VIAL IVP PRN (13:00)
[2023-01-23] MEDS ORDERED: MAG-AL HYDROX/SIMETH 30 ML UDC PO ONE (14:00)
[2023-01-23] MEDS: ATORVASTATIN 20 MG TABLET PO SCH (20:56)
[2023-01-23] MEDS: MIRTAZAPINE 15 MG TABLET PO SCH (20:57)
[2023-01-23] MEDS ORDERED: MAG-AL HYDROX/SIMETH 30 ML UDC PO PRN (21:00)
[2023-01-24] VITALS (7 sets, daily range): BP systolic 117–134; PULSE 71–99; RESP 13–17; TEMP 97.1–98.4; O2SAT 91–98
[2023-01-24] MEDS: PIPERACILLIN/TAZOBACTAM 2.25 GM/ DEX-IS 50 ML PREMIX IV SCH ×4 (00:02→18:19)
[2023-01-24] MEDS: D5W 1,000 ML IV SCH ×3 (01:09→18:15)
[2023-01-24 06:12] LABS: BASOPHILS # (AUTO) 0.1 K/uL (0.0-0.2); BASOPHILS % (AUTO) 0.5 % (0.0-2.0); EOSINOPHILS # (AUTO) 0.3 K/uL (0.0-0.4); EOSINOPHILS % (AUTO) 2.4 % (0.0-4.0); LYMPHOCYTES # (AUTO) 3.5 K/uL (1.0-5.5); LYMPHOCYTES % (AUTO) 30.3 % (20.5-51.5); MEAN CORPUSCULAR HEMOGLOBIN 31 pg (27-31); MEAN CORPUSCULAR HGB CONC 34 % (32-36); MEAN CORPUSCULAR VOLUME 90 fL (79.0-98.0); MONOCYTES # (AUTO) 0.9 K/uL (0.0-1.0); MONOCYTES % (AUTO) 7.4 % (1.7-9.3); NEUTROPHILS # (AUTO) 6.9 K/uL (1.8-7.7); NEUTROPHILS % (AUTO) 59.4 % (40.0-70.0); PLATELET COUNT (AUTO) 291 K/uL (130-430); RED BLOOD CELL COUNT(AUTO) 2.24 MIL/uL (4.2-6.2); RED CELL DISTRIBUTION WIDTH 13.8 % (9.0-15.0); WHITE BLOOD COUNT (AUTO) 11.6 K/uL (4.8-10.8)
[2023-01-24 06:31] LABS: HEMOGLOBIN 6.9 g/dL (12.0-16.0)
[2023-01-24 06:32] LABS: HEMATOCRIT 20.1 % (36-48)
[2023-01-24 06:35] LABS: ANION GAP 9 (5-15); CALCIUM 8.5 mg/dL (8.4-11.0); CARBON DIOXIDE 28 mmol/L (23-29); CHLORIDE 103 mmol/L (98-107); CREATININE 1.11 mg/dL (0.55-1.30); GLUCOSE 114 mg/dL (74-106); SODIUM SERUM 140 mmol/L (136-145); UREA NITROGEN, BLOOD 27 mg/dL (8-21)
[2023-01-24 06:36] LABS: POTASSIUM 2.5 mmol/L (3.5-5.1)
[2023-01-24 08:10] LABS: BASOPHILS # (AUTO) 0.1 K/uL (0.0-0.2); BASOPHILS % (AUTO) 0.7 % (0.0-2.0); EOSINOPHILS # (AUTO) 0.3 K/uL (0.0-0.4); EOSINOPHILS % (AUTO) 2.5 % (0.0-4.0); LYMPHOCYTES # (AUTO) 2.8 K/uL (1.0-5.5); LYMPHOCYTES % (AUTO) 27.8 % (20.5-51.5); MEAN CORPUSCULAR HEMOGLOBIN 31 pg (27-31); MEAN CORPUSCULAR HGB CONC 34 % (32-36); MEAN CORPUSCULAR VOLUME 91 fL (79.0-98.0); MONOCYTES # (AUTO) 0.8 K/uL (0.0-1.0); MONOCYTES % (AUTO) 7.9 % (1.7-9.3); NEUTROPHILS # (AUTO) 6.3 K/uL (1.8-7.7); NEUTROPHILS % (AUTO) 61.1 % (40.0-70.0); PLATELET COUNT (AUTO) 279 K/uL (130-430); RED BLOOD CELL COUNT(AUTO) 2.11 MIL/uL (4.2-6.2); RED CELL DISTRIBUTION WIDTH 13.5 % (9.0-15.0); WHITE BLOOD COUNT (AUTO) 10.2 K/uL (4.8-10.8)
[2023-01-24 08:15] LABS: HEMATOCRIT 19.1 % (36-48); HEMOGLOBIN 6.5 g/dL (12.0-16.0)
[2023-01-24] MEDS: traMADol HCL HCL 50 MG TABLET (ULTRAM) PO SCH ×2 (09:00→21:32)
[2023-01-24] MEDS: levoFLOXacin 500 MG TABLET PO SCH (10:40)
[2023-01-24] MEDS: CLOPIDOGREL BISULFATE 75 MG TABLET PO SCH (10:40)
[2023-01-24] MEDS: Effexor 37.5 MG TAB PO SCH (10:41)
[2023-01-24] MEDS: ASPIRIN 325 MG TABLET (ECOTRIN) PO SCH (10:41)
[2023-01-24] MEDS: PANTOPRAZOLE SODIUM 40 MG TAB PO SCH (10:41)
[2023-01-24] MEDS: amLODIPine BESYLATE 10 MG TABLET PO SCH (10:46)
[2023-01-24] MEDS: ATORVASTATIN 20 MG TABLET PO SCH (21:32)
[2023-01-24] MEDS: DONEPEZIL HCL 5 MG TABLET (ARICEPT) PO SCH (21:32)
[2023-01-24] MEDS: MIRTAZAPINE 15 MG TABLET PO SCH (21:32)
[2023-01-25] VITALS (7 sets, daily range): BP systolic 129–134; PULSE 75–80; RESP 18–19; TEMP 97–98.6; O2SAT 96–99
[2023-01-25] MEDS: PIPERACILLIN/TAZOBACTAM 2.25 GM/ DEX-IS 50 ML PREMIX IV SCH ×5 (01:31→23:20)
[2023-01-25] MEDS: D5W 1,000 ML IV SCH ×2 (04:53→14:15)
[2023-01-25 06:47] LABS: BASOPHILS # (AUTO) 0.1 K/uL (0.0-0.2); BASOPHILS % (AUTO) 0.5 % (0.0-2.0); EOSINOPHILS # (AUTO) 0.3 K/uL (0.0-0.4); EOSINOPHILS % (AUTO) 2.9 % (0.0-4.0); HEMATOCRIT 24.9 % (36-48); HEMOGLOBIN 8.6 g/dL (12.0-16.0); LYMPHOCYTES # (AUTO) 2.5 K/uL (1.0-5.5); LYMPHOCYTES % (AUTO) 21.6 % (20.5-51.5); MEAN CORPUSCULAR HEMOGLOBIN 30 pg (27-31); MEAN CORPUSCULAR HGB CONC 35 % (32-36); MEAN CORPUSCULAR VOLUME 87 fL (79.0-98.0); MONOCYTES % (AUTO) 8.2 % (1.7-9.3); NEUTROPHILS # (AUTO) 7.8 K/uL (1.8-7.7); NEUTROPHILS % (AUTO) 66.8 % (40.0-70.0); PLATELET COUNT (AUTO) 298 K/uL (130-430); RED BLOOD CELL COUNT(AUTO) 2.88 MIL/uL (4.2-6.2); RED CELL DISTRIBUTION WIDTH 15.2 % (9.0-15.0); WHITE BLOOD COUNT (AUTO) 11.7 K/uL (4.8-10.8)
[2023-01-25 07:59] LABS: ANION GAP 9 (5-15); CALCIUM 8.3 mg/dL (8.4-11.0); CARBON DIOXIDE 27 mmol/L (23-29); CHLORIDE 105 mmol/L (98-107); CREATININE 1.02 mg/dL (0.55-1.30); GLUCOSE 111 mg/dL (74-106); SODIUM SERUM 141 mmol/L (136-145); UREA NITROGEN, BLOOD 18 mg/dL (8-21)
[2023-01-25 08:02] LABS: POTASSIUM 2.5 mmol/L (3.5-5.1)
[2023-01-25] MEDS: traMADol HCL HCL 50 MG TABLET (ULTRAM) PO SCH ×2 (09:40→20:34)
[2023-01-25] MEDS: Effexor 37.5 MG TAB PO SCH (09:40)
[2023-01-25] MEDS: PANTOPRAZOLE SODIUM 40 MG TAB PO SCH (09:41)
[2023-01-25] MEDS: CLOPIDOGREL BISULFATE 75 MG TABLET PO SCH (09:41)
[2023-01-25] MEDS: amLODIPine BESYLATE 10 MG TABLET PO SCH (09:41)
[2023-01-25] MEDS: levoFLOXacin 500 MG TABLET PO SCH (09:41)
[2023-01-25] MEDS: ASPIRIN 325 MG TABLET (ECOTRIN) PO SCH (09:42)
[2023-01-25] MEDS ORDERED: POTASSIUM CHLORIDE 40 MEQ in D5W 250 ML IV ONE (11:30)
[2023-01-25] MEDS: DONEPEZIL HCL 5 MG TABLET (ARICEPT) PO SCH (20:34)
[2023-01-25] MEDS: MIRTAZAPINE 15 MG TABLET PO SCH (20:35)
[2023-01-25] MEDS: ATORVASTATIN 20 MG TABLET PO SCH (20:35)
[2023-01-26] VITALS (16 sets, daily range): BP systolic 84–143; PULSE 71–101; RESP 16–18; TEMP 96.9–98.6; O2SAT 78–98
[2023-01-26] MEDS: D5W 1,000 ML IV SCH ×3 (00:23→18:27)
[2023-01-26 05:23] LABS: BASOPHILS # (AUTO) 0.1 K/uL (0.0-0.2); BASOPHILS % (AUTO) 0.5 % (0.0-2.0); EOSINOPHILS # (AUTO) 0.6 K/uL (0.0-0.4); EOSINOPHILS % (AUTO) 4.4 % (0.0-4.0); HEMATOCRIT 26.3 % (36-48); HEMOGLOBIN 9.2 g/dL (12.0-16.0); LYMPHOCYTES # (AUTO) 2.2 K/uL (1.0-5.5); LYMPHOCYTES % (AUTO) 16.4 % (20.5-51.5); MEAN CORPUSCULAR HEMOGLOBIN 30 pg (27-31); MEAN CORPUSCULAR HGB CONC 35 % (32-36); MEAN CORPUSCULAR VOLUME 86 fL (79.0-98.0); MONOCYTES # (AUTO) 1.1 K/uL (0.0-1.0); MONOCYTES % (AUTO) 8.1 % (1.7-9.3); NEUTROPHILS # (AUTO) 9.6 K/uL (1.8-7.7); NEUTROPHILS % (AUTO) 70.6 % (40.0-70.0); PLATELET COUNT (AUTO) 322 K/uL (130-430); RED BLOOD CELL COUNT(AUTO) 3.04 MIL/uL (4.2-6.2); RED CELL DISTRIBUTION WIDTH 15.5 % (9.0-15.0); WHITE BLOOD COUNT (AUTO) 13.6 K/uL (4.8-10.8)
[2023-01-26] MEDS: PIPERACILLIN/TAZOBACTAM 2.25 GM/ DEX-IS 50 ML PREMIX IV SCH ×5 (05:24→23:04)
[2023-01-26 06:19] LABS: ANION GAP 11 (5-15); CALCIUM 8.6 mg/dL (8.4-11.0); CARBON DIOXIDE 26 mmol/L (23-29); CHLORIDE 104 mmol/L (98-107); CREATININE 1.07 mg/dL (0.55-1.30); GLUCOSE 108 mg/dL (74-106); POTASSIUM 3.3 mmol/L (3.5-5.1); SODIUM SERUM 141 mmol/L (136-145); UREA NITROGEN, BLOOD 15 mg/dL (8-21)
[2023-01-26] MEDS: CLOPIDOGREL BISULFATE 75 MG TABLET PO SCH (08:14)
[2023-01-26] MEDS: ASPIRIN 325 MG TABLET (ECOTRIN) PO SCH (08:14)
[2023-01-26] MEDS: levoFLOXacin 500 MG TABLET PO SCH (08:14)
[2023-01-26] MEDS: traMADol HCL HCL 50 MG TABLET (ULTRAM) PO SCH ×2 (08:14→20:19)
[2023-01-26] MEDS: PANTOPRAZOLE SODIUM 40 MG TAB PO SCH (08:14)
[2023-01-26] MEDS: amLODIPine BESYLATE 10 MG TABLET PO SCH (08:15)
[2023-01-26] MEDS: Effexor 37.5 MG TAB PO SCH (08:15)
[2023-01-26 08:31] LABS: TOTAL IRON BIND. CAPACITY 281 ug/dL (250-450)
[2023-01-26] MEDS ORDERED: POTASSIUM CHLORIDE 20 MEQ TABLET.ER PO ONE (09:30)
[2023-01-26 10:04] LABS: BASOPHILS # (AUTO) 0.1 K/uL (0.0-0.2); BASOPHILS % (AUTO) 0.6 % (0.0-2.0); EOSINOPHILS # (AUTO) 0.5 K/uL (0.0-0.4); EOSINOPHILS % (AUTO) 3.7 % (0.0-4.0); HEMATOCRIT 26.5 % (36-48); LYMPHOCYTES # (AUTO) 1.7 K/uL (1.0-5.5); LYMPHOCYTES % (AUTO) 13.4 % (20.5-51.5); MEAN CORPUSCULAR HEMOGLOBIN 30 pg (27-31); MEAN CORPUSCULAR HGB CONC 34 % (32-36); MEAN CORPUSCULAR VOLUME 88 fL (79.0-98.0); MONOCYTES # (AUTO) 1.1 K/uL (0.0-1.0); MONOCYTES % (AUTO) 8.6 % (1.7-9.3); NEUTROPHILS # (AUTO) 9.3 K/uL (1.8-7.7); NEUTROPHILS % (AUTO) 73.7 % (40.0-70.0); PLATELET COUNT (AUTO) 313 K/uL (130-430); RED BLOOD CELL COUNT(AUTO) 3.03 MIL/uL (4.2-6.2); RED CELL DISTRIBUTION WIDTH 15.4 % (9.0-15.0); WHITE BLOOD COUNT (AUTO) 12.6 K/uL (4.8-10.8)
[2023-01-26] MEDS ORDERED: PRED20TA PO (10:16)
[2023-01-26] MEDS: DONEPEZIL HCL 5 MG TABLET (ARICEPT) PO SCH (20:18)
[2023-01-26] MEDS: ATORVASTATIN 20 MG TABLET PO SCH (20:18)
[2023-01-26] MEDS: MIRTAZAPINE 15 MG TABLET PO SCH (20:18)
[2023-01-26] MEDS: NACL 0.9% 1,000 ML IV SCH (23:05)
[2023-01-27 00:13] VITALS: BP_SYST 115; PULSE 77; RESP 16; TEMP 97.8; O2SAT 98
[2023-01-27] MEDS: PIPERACILLIN/TAZOBACTAM 2.25 GM/ DEX-IS 50 ML PREMIX IV SCH ×4 (05:01→23:11)
[2023-01-27] MEDS: PANTOPRAZOLE SODIUM 40 MG TAB PO SCH (09:15)
[2023-01-27] MEDS: levoFLOXacin 500 MG TABLET PO SCH (09:15)
[2023-01-27] MEDS: traMADol HCL HCL 50 MG TABLET (ULTRAM) PO SCH ×2 (09:16→20:56)
[2023-01-27] MEDS: Effexor 37.5 MG TAB PO SCH (09:16)
[2023-01-27] MEDS: ASPIRIN 325 MG TABLET (ECOTRIN) PO SCH (09:17)
[2023-01-27] MEDS: CLOPIDOGREL BISULFATE 75 MG TABLET PO SCH (09:17)
[2023-01-27 11:30] VITALS: BP_SYST 115; PULSE 82; RESP 17; TEMP 98.4; O2SAT 97
[2023-01-27 11:55] LABS: BASOPHILS % (AUTO) 0.3 % (0.0-2.0); EOSINOPHILS # (AUTO) 0.4 K/uL (0.0-0.4); EOSINOPHILS % (AUTO) 2.6 % (0.0-4.0); HEMATOCRIT 28.8 % (36-48); HEMOGLOBIN 9.4 g/dL (12.0-16.0); LYMPHOCYTES # (AUTO) 1.7 K/uL (1.0-5.5); LYMPHOCYTES % (AUTO) 12.5 % (20.5-51.5); MEAN CORPUSCULAR HEMOGLOBIN 29 pg (27-31); MEAN CORPUSCULAR HGB CONC 33 % (32-36); MONOCYTES # (AUTO) 1.1 K/uL (0.0-1.0); MONOCYTES % (AUTO) 8.1 % (1.7-9.3); NEUTROPHILS # (AUTO) 10.4 K/uL (1.8-7.7); NEUTROPHILS % (AUTO) 76.5 % (40.0-70.0); PLATELET COUNT (AUTO) 359 K/uL (130-430); RED BLOOD CELL COUNT(AUTO) 3.22 MIL/uL (4.2-6.2); RED CELL DISTRIBUTION WIDTH 15.8 % (9.0-15.0); WHITE BLOOD COUNT (AUTO) 13.6 K/uL (4.8-10.8)
[2023-01-27 11:58] LABS: MEAN CORPUSCULAR VOLUME 90 fL (79.0-98.0)
[2023-01-27 12:06] LABS: ANION GAP 7 (5-15); CALCIUM 8.5 mg/dL (8.4-11.0); CARBON DIOXIDE 29 mmol/L (23-29); CHLORIDE 103 mmol/L (98-107); CREATININE 1.17 mg/dL (0.55-1.30); GLUCOSE 96 mg/dL (74-106); POTASSIUM 3.6 mmol/L (3.5-5.1); SODIUM SERUM 139 mmol/L (136-145); UREA NITROGEN, BLOOD 16 mg/dL (8-21)
[2023-01-27] MEDS ORDERED: POLYETHYLENE GLYCOL 3350, 17 GM/ POWD.PACK PO PRN (14:45)
[2023-01-27] MEDS: NACL 0.9% 1,000 ML IV SCH (16:24)
[2023-01-27 16:37] VITALS: BP_SYST 146; PULSE 94; RESP 18; TEMP 97.9; O2SAT 99
[2023-01-27 19:55] VITALS: BP_SYST 118; PULSE 78; RESP 18; TEMP 96.7; O2SAT 98
[2023-01-27 19:57] VITALS: O2SAT 98
[2023-01-27] MEDS: MIRTAZAPINE 15 MG TABLET PO SCH (20:55)
[2023-01-27] MEDS: DONEPEZIL HCL 5 MG TABLET (ARICEPT) PO SCH (20:55)
[2023-01-27] MEDS: ATORVASTATIN 20 MG TABLET PO SCH (20:55)
[2023-01-28 00:58] VITALS: BP_SYST 139; PULSE 77; RESP 17; TEMP 98.4; O2SAT 98
[2023-01-28] MEDS: NACL 0.9% 1,000 ML IV SCH (04:45)
[2023-01-28] MEDS: PIPERACILLIN/TAZOBACTAM 2.25 GM/ DEX-IS 50 ML PREMIX IV SCH ×2 (05:02→11:28)
[2023-01-28 07:30] VITALS: BP_SYST 140; PULSE 76; RESP 18; TEMP 97.1
[2023-01-28 08:05] LABS: BASOPHILS # (AUTO) 0.1 K/uL (0.0-0.2); BASOPHILS % (AUTO) 0.5 % (0.0-2.0); EOSINOPHILS # (AUTO) 0.5 K/uL (0.0-0.4); HEMOGLOBIN 9.2 g/dL (12.0-16.0); MONOCYTES # (AUTO) 0.9 K/uL (0.0-1.0); RED CELL DISTRIBUTION WIDTH 15.8 % (9.0-15.0)
[2023-01-28 08:11] LABS: ALANINE AMINOTRANSFERASE 36 U/L (12-78); ALBUMIN 2.8 g/dL (3.4-4.8); ANION GAP 7 (5-15); ASPARTATE AMINOTRANSFERASE 12 U/L (10-37); CALCIUM 8.5 mg/dL (8.4-11.0); CARBON DIOXIDE 27 mmol/L (23-29); CHLORIDE 102 mmol/L (98-107); CREATININE 1.16 mg/dL (0.55-1.30); GLUCOSE 95 mg/dL (74-106); POTASSIUM 3.6 mmol/L (3.5-5.1); SODIUM SERUM 136 mmol/L (136-145); TOTAL BILIRUBIN 0.3 mg/dL (0.0-1.0); TOTAL PROTEIN, SERUM 6.1 g/dL (6.4-8.3); UREA NITROGEN, BLOOD 16 mg/dL (8-21)
[2023-01-28 08:12] LABS: MEAN CORPUSCULAR HEMOGLOBIN 29 pg (27-31); MEAN CORPUSCULAR HGB CONC 33 % (32-36); RED BLOOD CELL COUNT(AUTO) 3.15 MIL/uL (4.2-6.2)
[2023-01-28 08:26] LABS: EOSINOPHILS % (AUTO) 3.8 % (0.0-4.0); LYMPHOCYTES # (AUTO) 1.9 K/uL (1.0-5.5); LYMPHOCYTES % (AUTO) 14.6 % (20.5-51.5); MEAN CORPUSCULAR VOLUME 89 fL (79.0-98.0); MONOCYTES % (AUTO) 6.8 % (1.7-9.3); NEUTROPHILS # (AUTO) 9.6 K/uL (1.8-7.7); NEUTROPHILS % (AUTO) 74.3 % (40.0-70.0); PLATELET COUNT (AUTO) 349 K/uL (130-430)
[2023-01-28] MEDS: ASPIRIN 325 MG TABLET (ECOTRIN) PO SCH (08:39)
[2023-01-28] MEDS: CLOPIDOGREL BISULFATE 75 MG TABLET PO SCH (08:40)
[2023-01-28] MEDS: Effexor 37.5 MG TAB PO SCH (08:40)
[2023-01-28] MEDS: traMADol HCL HCL 50 MG TABLET (ULTRAM) PO SCH (08:40)
[2023-01-28] MEDS: PANTOPRAZOLE SODIUM 40 MG TAB PO SCH (08:40)
[2023-01-28] MEDS: levoFLOXacin 500 MG TABLET PO SCH (08:40)
[2023-01-28 11:47] VITALS: BP_SYST 126; PULSE 75; RESP 19; TEMP 98.9; O2SAT 97
== END 2023-01-28 14:10 | disposition home or self-care (01) | DRG 640 ==
LOC: SED 11:27 → SMU 13:56
PROVIDERS: ADMIT Specialist; ATTEND Specialist
PROC: 30233N1 Transfusion of Nonautologous Red Blood Cells into Peripheral Vein, Percutaneous Approach (ICD-10-PCS; principal; 2023-01-24)
DX: E87.6 Hypokalemia (principal); N17.0 Acute kidney failure with tubular necrosis; E87.0 Hyperosmolality and hypernatremia; E03.9 Hypothyroidism, unspecified; F41.9 Anxiety disorder, unspecified; G62.9 Polyneuropathy, unspecified; E78.5 Hyperlipidemia, unspecified; I12.9 Hypertensive chronic kidney disease with stage 1 through stage 4 chronic kidney disease, or unspecified chronic kidney disease; N18.31 Chronic kidney disease, stage 3a; D64.9 Anemia, unspecified; Z88.5 Allergy status to narcotic agent; Z88.8 Allergy status to other drugs, medicaments and biological substances; Z91.09 Other allergy status, other than to drugs and biological substances; Z79.899 Other long term (current) drug therapy; Z79.82 Long term (current) use of aspirin
CPT/HCPCS: 36415; 70450-TC; 70551; 71045; 76376; 80048; 80053; 81003; 82272; 82962; 83010; 83540; 83550; 83605; 84484; 85025; 86886; 86900; 86901; 86920; 87040; 87045-TC; 87046; 87086; 93005; 96361; 96365; 97110-GP; 97112-GP; 97116-GP; 97530-GP; 99291; J2543; J3480; J7060; P9021

== ENCOUNTER 2023-02-05 11:15 | Emergency (ER) | payer OTHER ==
[~2023-02-05] VITALS: Ht 157.5 cm; Wt 65.8 kg
[~2023-02-05 11:15] MED LIST changes: -CEPH250C PO; +CLOP75TA32 PO; -CYCL10TA24 PO; -CYCL10TA25 PO; -GABA-531 PO; -LEVO-62 PO; -LEVO112C4 PO; +LEVO125C4 PO; -METH-634 PO; -TRAZ-250 PO; -ZOLP10TA6 PO
[2023-02-05 11:37] VITALS: PULSE 94; RESP 18
[2023-02-05 11:59] LABS: BASOPHILS % (AUTO) 0.1 % (0.0-2.0); HEMATOCRIT 27.7 % (36-48); HEMOGLOBIN 9.3 g/dL (12.0-16.0); LYMPHOCYTES # (AUTO) 0.8 K/uL (1.0-5.5); LYMPHOCYTES % (AUTO) 8.1 % (20.5-51.5); MEAN CORPUSCULAR HEMOGLOBIN 29 pg (27-31); MEAN CORPUSCULAR HGB CONC 34 % (32-36); MEAN CORPUSCULAR VOLUME 86 fL (79.0-98.0); MONOCYTES # (AUTO) 0.6 K/uL (0.0-1.0); MONOCYTES % (AUTO) 5.6 % (1.7-9.3); NEUTROPHILS # (AUTO) 8.8 K/uL (1.8-7.7); NEUTROPHILS % (AUTO) 86.2 % (40.0-70.0); PLATELET COUNT (AUTO) 519 K/uL (130-430); RED BLOOD CELL COUNT(AUTO) 3.22 MIL/uL (4.2-6.2); RED CELL DISTRIBUTION WIDTH 15.6 % (9.0-15.0); WHITE BLOOD COUNT (AUTO) 10.3 K/uL (4.8-10.8)
[2023-02-05 12:14] LABS: ANION GAP 8 (5-15); CALCIUM 9.1 mg/dL (8.4-11.0); CARBON DIOXIDE 26 mmol/L (23-29); CHLORIDE 102 mmol/L (98-107); CREATININE 1.25 mg/dL (0.55-1.30); GLUCOSE 124 mg/dL (74-106); POTASSIUM 3.7 mmol/L (3.5-5.1); SODIUM SERUM 136 mmol/L (136-145); UREA NITROGEN, BLOOD 25 mg/dL (8-21)
[2023-02-05 12:16] LABS: PROTHROMBIN TIME 9.9 SECS (9.5-12.5)
[2023-02-05 12:17] LABS: BILIRUBIN,URINE NEGATIVE (NEGATIVE); BLOOD, URINE 2+ (NEGATIVE); CLARITY/URINE CLOUDY (CLEAR); COLOR,URINE YELLOW (YELLOW); GLUCOSE,URINE NEGATIVE (NEGATIVE); KETONES,URINE NEGATIVE (NEGATIVE); LEUKOCYTE ESTERASE ,URINE NEGATIVE (NEGATIVE); NITRITE, URINE NEGATIVE (NEGATIVE); PROTEIN URINE 1+ (NEGATIVE); UROBILINOGEN,URINE 0.2 (0.2-1.0)
[2023-02-05 12:30] LABS: ALANINE AMINOTRANSFERASE 37 U/L (12-78); ALBUMIN 3.3 g/dL (3.4-4.8); ASPARTATE AMINOTRANSFERASE 17 U/L (10-37); CREATINE KINASE, TOTAL 30 U/L (26-192); FREE T4 (FREE THYROXINE) 1.3 ng/dL (0.6-1.6); THYROID STIMULATING HORMONE 8.22 uIu/mL (0.34-4.82); TOTAL BILIRUBIN 0.3 mg/dL (0.0-1.0); TOTAL PROTEIN, SERUM 6.9 g/dL (6.4-8.3)
[2023-02-05 12:45] LABS: BACTERIA,URINE MODERATE /HPF (None Seen); WBC,URINE 0-3 /HPF (0-3)
[2023-02-05 14:05] LABS: ACETONE, SERUM NEGATIVE (NEGATIVE)
[2023-02-05 14:44] VITALS: BP_SYST 118; PULSE 75; RESP 16; TEMP 97.7; O2SAT 98
== END 2023-02-05 14:44 | disposition home or self-care (01) ==
LOC: SED 11:15
DX: R53.1 Weakness (principal); I10 Essential (primary) hypertension; Z88.5 Allergy status to narcotic agent; Z88.6 Allergy status to analgesic agent; Z88.8 Allergy status to other drugs, medicaments and biological substances; Z79.899 Other long term (current) drug therapy
CPT/HCPCS: 36415; 70450-TC; 71045; 76376; 80053; 81000; 81001; 81015; 82009; 82550; 83605; 84439; 84443; 84484; 85025; 85610-TC; 85730-TC; 87086; 93005; 99285

== ENCOUNTER 2023-06-23 20:35 | Emergency (ER) | payer OTHER ==
[~2023-06-23] VITALS: Ht 175.3 cm; Wt 65.8 kg
[2023-06-23 20:48] VITALS: BP_SYST 130; PULSE 78; RESP 18; TEMP 97.9; O2SAT 98
[2023-06-23] MEDS: NS 1000 ML IV.SOLN IV ONE (21:16)
[2023-06-23 21:25] LABS: BASOPHILS % (AUTO) 0.4 % (0.0-2.0); EOSINOPHILS % (AUTO) 0.3 % (0.0-4.0); HEMATOCRIT 36.8 % (36-48); HEMOGLOBIN 12.3 g/dL (12.0-16.0); LYMPHOCYTES # (AUTO) 1.9 K/uL (1.0-5.5); LYMPHOCYTES % (AUTO) 23.7 % (20.5-51.5); MEAN CORPUSCULAR HEMOGLOBIN 25 pg (27-31); MEAN CORPUSCULAR HGB CONC 34 % (32-36); MEAN CORPUSCULAR VOLUME 75 fL (79.0-98.0); MONOCYTES # (AUTO) 0.6 K/uL (0.0-1.0); MONOCYTES % (AUTO) 6.8 % (1.7-9.3); NEUTROPHILS # (AUTO) 5.6 K/uL (1.8-7.7); NEUTROPHILS % (AUTO) 68.8 % (40.0-70.0); PLATELET COUNT (AUTO) 353 K/uL (130-430); RED BLOOD CELL COUNT(AUTO) 4.89 MIL/uL (4.2-6.2); RED CELL DISTRIBUTION WIDTH 20.8 % (9.0-15.0); WHITE BLOOD COUNT (AUTO) 8.2 K/uL (4.8-10.8)
[2023-06-23 22:01] LABS: ANION GAP 11 (5-15); CARBON DIOXIDE 30 mmol/L (23-29); CHLORIDE 99 mmol/L (98-107); CREATININE 1.63 mg/dL (0.55-1.30); GLUCOSE 132 mg/dL (74-106); POTASSIUM 3.2 mmol/L (3.5-5.1); SODIUM SERUM 140 mmol/L (136-145); UREA NITROGEN, BLOOD 21 mg/dL (8-21)
[2023-06-23 22:09] LABS: ALANINE AMINOTRANSFERASE 22 U/L (12-78); ALBUMIN 4.3 g/dL (3.4-4.8); ASPARTATE AMINOTRANSFERASE 22 U/L (10-37); BILIRUBIN,DIRECT 0.1 mg/dL (0.0-0.3); TOTAL BILIRUBIN 0.5 mg/dL (0.0-1.0); TOTAL PROTEIN, SERUM 8.6 g/dL (6.4-8.3)
[2023-06-23 22:32] LABS: BILIRUBIN,URINE NEGATIVE (NEGATIVE); BLOOD, URINE NEGATIVE (NEGATIVE); CLARITY/URINE SL CLOUDY (CLEAR); COLOR,URINE YELLOW (YELLOW); GLUCOSE,URINE NEGATIVE (NEGATIVE); KETONES,URINE TRACE (NEGATIVE); LEUKOCYTE ESTERASE ,URINE NEGATIVE (NEGATIVE); NITRITE, URINE NEGATIVE (NEGATIVE); PROTEIN URINE NEGATIVE (NEGATIVE); UROBILINOGEN,URINE 0.2 (0.2-1.0)
[2023-06-23] MEDS ORDERED: ALPR-372 PO (22:36)
[2023-06-23] MEDS ORDERED: ZOLP-189 PO (22:36)
[2023-06-23] MEDS ORDERED: GABA-333 PO (22:36)
[2023-06-23] MEDS ORDERED: CYCL10TA25 PO (22:36)
[2023-06-23 22:58] LABS: BACTERIA,URINE MANY /HPF (None Seen); MUCUS,URINE None Seen /LPF (None Seen); RBC,URINE 0-3 /HPF (0-3)
[2023-06-23] MEDS ORDERED: CIPR500T5 PO (23:37)
[2023-06-23] MEDS: cefTRIAXone 1 GM IVPB PREMIX 50 ML IV ONE (23:40)
[2023-06-24] VITALS: BP_SYST 144; PULSE 69; RESP 16; TEMP 97.3; O2SAT 96
== END 2023-06-24 | disposition home or self-care (01) ==
LOC: SED 20:35
DX: N39.0 Urinary tract infection, site not specified (principal); R53.1 Weakness; R63.0 Anorexia; Z88.5 Allergy status to narcotic agent; Z88.6 Allergy status to analgesic agent; Z88.8 Allergy status to other drugs, medicaments and biological substances; Z79.899 Other long term (current) drug therapy
CPT/HCPCS: 99285; 96365; 71045; 96361; 80076; 80048; 81001; 85025; 85610; 85730; 87040; 87086; 84484; 36415; 93005; 83605; 81000; 81015; J0696; J7030